=== PATIENT | male | born 1955 | race American Indian/Alaskan Native ===

== ENCOUNTER 2017-05-18 15:38 | Emergency (ER) | payer SELFPAY ==
[2017-05-18] MEDS ORDERED: NORVASC PO ONE (16:24)
[2017-05-18] MEDS ORDERED: CATAPRES PO ONE (16:24)
[2017-05-18 16:47] LABS: Eosinophils % (Auto) 1.7 % (0.0-4.3); Hematocrit 50.5 % (35.5-45.6); Hemoglobin 16.4 gm/dl (11.8-15.2); Mean Corpuscular HGB Conc 33 % (32-34); Mean Corpuscular Hemoglobin 30 pg (28-32); Mean Corpuscular Volume 92 fl (84-94); Platelet Count 235 K/mm3 (140-440); Red Blood Count 5.49 M/mm3 (3.65-5.03); Red Cell Distribution Width 13.5 % (13.2-15.2); White Blood Count 8.3 K/mm3 (4.5-11.0)
[2017-05-18 17:01] LABS: Bilirubin,Urine NEG (Negative); Blood,Urine SM (Negative); Ketones,Urine NEG (Negative); Leukocyte Esterase,Urine NEG (Negative); Mucus,Urine 2+ /HPF; Nitrite,Urine NEG (Negative); Urobilinogen,Urine < 2.0 mg/dL (<2.0)
[2017-05-18 17:09] LABS: Alanine Aminotransferase 33 units/L (7-56); Alkaline Phosphatase 66 units/L (35-129); Anion Gap 18 mmol/L; BUN/Creatinine Ratio 11.81; Blood Urea Nitrogen 13 mg/dL (9-20); Calcium 8.9 mg/dL (8.4-10.2); Carbon Dioxide 26 mmol/L (22-30); Chloride 99.9 mmol/L (98-107); Glucose 134 mg/dL (75-100); Potassium 3.2 mmol/L (3.6-5.0); Sodium 141 mmol/L (137-145); Total Protein 8.2 g/dL (6.3-8.2)
--- NOTE | 2017-05-18 17:35 | Cat Scan Report ---
FINAL REPORT EXAM: CT HEAD/BRAIN WO CON HISTORY: ear ache TECHNIQUE: Noncontrast serial axial images from skullbase to vertex PRIORS: None. FINDINGS: There is no mass effect or midline shift. Lateral ventricles are normal in size and configuration. Basilar cisterns are patent. There is not evidence of acute intracranial hemorrhage. Areas of malacia are seen in the right parietal lobe and posterior right temporal lobe consistent with prior infarcts. Areas of relative hypodensity are in the white matter of the cerebral hemispheres. Punctate calcifications are noted in the cortex of the left frontal lobe and in the right basal ganglia. Paranasal sinuses and mastoid air cells are well aerated. There is soft tissue density noted in the right external auditory canal. The middle ear is well aerated, however. IMPRESSION: 1. 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 2. Areas of relative hypodensity are seen in the white matter of the cerebral hemispheres. This is a nonspecific finding. It may be related to chronic ischemic change from small vessel disease. 3. Asymmetric soft tissue density is seen in the right external auditory canal. This is a nonspecific finding. It could be related to otitis externa given the history provided. Other neoplastic process is not excluded. Correlation with otoscopic exam is necessary.
[2017-05-18] MEDS ORDERED: ZOFRAN IV ONE (18:10)
[2017-05-18] MEDS ORDERED: MORPHINE IV ONE (18:10)
--- NOTE | 2017-05-18 18:31 | Emergency Department Report ---
ED ENT HPI - General Chief complaint: Earache Stated complaint: RT EAR INFECTION Time Seen by Provider: 05/18/17 16:24 Source: patient Mode of arrival: Ambulatory Limitations: No Limitations - History of Present Illness Initial comments: 62-year-old male with past medical history of hypertension is presenting to the ED complaining of right ear pain. Patient states pain started approximately 3 weeks prior. No inciting factor such as trauma. Patient states initially pain was a dull intermittent ache,that would resolve on its own. Patient states over the last several days, pain has become more constant. Worse when he opens his mouth and chews food, improves when he rests. Patient denies: fevers/chills, headache, neck pain, neck stiffness, chest pain, nausea/vomiting/diarrhea, neuro deficits. MD complaint: ear pain -: Gradual, week(s) (3) Location: R ear Severity: moderate Severity scale (0 -10): 3 Quality: stabbing Consistency: constant Improves with: none Worsens with: swallowing Associated Symptoms: denies: cough, gum swelling, toothache, pain with swallowing, sore throat, tinnitus, hearing loss, discharge from ear, rhinorrhea - Related Data Previous Rx's Medication Instructions Recorded Last Taken Type Cipro/Dexameth 0.3/0.1% [Ciprodex 4 drops OT BID #1 bottle 05/18/17 Unknown Rx OTIC] HYDROcodone/APAP 5-325 [[place] 1 each PO Q4HR PRN #20 tablet 05/18/17 Unknown Rx 5/325] amLODIPine [Norvasc] 10 mg PO DAILY #30 tab 05/18/17 Unknown Rx Allergies Allergy/AdvReac Type Severity Reaction Status Date / Time No Known Allergies Allergy Unverified 05/18/17 16:11 ED Dental HPI - General Chief complaint: Earache Stated complaint: RT EAR INFECTION Time Seen by Provider: 05/18/17 16:24 Source: patient Mode of arrival: Ambulatory Limitations: No Limitations - Related Data Previous Rx's Medication Instructions Recorded Last Taken Type Cipro/Dexameth 0.3/0.1% [Ciprodex 4 drops OT BID #1 bottle 05/18/17 Unknown Rx OTIC] HYDROcodone/APAP 5-325 [[place] 1 each PO Q4HR PRN #20 tablet 05/18/17 Unknown Rx 5/325] amLODIPine [Norvasc] 10 mg PO DAILY #30 tab 05/18/17 Unknown Rx Allergies Allergy/AdvReac Type Severity Reaction Status Date / Time No Known Allergies Allergy Unverified 05/18/17 16:11 ED Review of Systems ROS: Stated complaint: RT EAR INFECTION Other details as noted in HPI Constitutional: denies: chills, fever Eyes: denies: eye pain, eye discharge, vision change ENT: ear pain. denies: throat pain, dental pain, hearing loss, epistaxis, congestion Respiratory: denies: cough, shortness of breath, wheezing Cardiovascular: denies: chest pain, palpitations Endocrine: no symptoms reported Gastrointestinal: denies: abdominal pain, nausea, diarrhea Genitourinary: denies: urgency, dysuria Musculoskeletal: denies: back pain, joint swelling, arthralgia Skin: denies: rash, lesions Neurological: denies: headache, weakness, paresthesias Psychiatric: denies: anxiety, depression Hematological/Lymphatic: denies: easy bleeding, easy bruising ED Past Medical Hx - Past Medical History Hx Hypertension: Yes - Surgical History Past Surgical History?: No - Social History Smoking Status: Never Smoker Substance Use Type: None - Medications Home Medications: Home Medications Medication Instructions Recorded Confirmed Last Taken Type Cipro/Dexameth 0.3/0.1% [Ciprodex 4 drops OT BID #1 bottle 05/18/17 Unknown Rx OTIC] HYDROcodone/APAP 5-325 [[place] 1 each PO Q4HR PRN #20 tablet 05/18/17 Unknown Rx 5/325] amLODIPine [Norvasc] 10 mg PO DAILY #30 tab 05/18/17 Unknown Rx ED Physical Exam - General Limitations: No Limitations General appearance: alert, in no apparent distress - Head Head exam: Present: atraumatic, normocephalic - Eye Eye exam: Present: normal appearance - ENT ENT exam: Present: normal orophraynx, mucous membranes dry, mucous membranes moist, other (right ear has exuadative fluid behind TM, TM has erythema, there is no drainage. left ear: TM CLEAR). Absent: TM's normal bilaterally - Neck Neck exam: Present: normal inspection - Respiratory Respiratory exam: Present: normal lung sounds bilaterally. Absent: respiratory distress - Cardiovascular Cardiovascular Exam: Present: regular rate, normal rhythm. Absent: systolic murmur, diastolic murmur, rubs, gallop - GI/Abdominal GI/Abdominal exam: Present: soft, normal bowel sounds - Rectal Rectal exam: Present: deferred - Extremities Exam Extremities exam: Present: normal inspection - Back Exam Back exam: Present: normal inspection - Neurological Exam Neurological exam: Present: alert, oriented X3 - Psychiatric Psychiatric exam: Present: normal affect, normal mood - Skin Skin exam: Present: warm, dry, intact, normal color. Absent: rash ED Course Vital Signs 05/18/17 05/18/17 05/18/17 16:11 16:15 16:41 Temperature 98.8 F Pulse Rate 81 81 Respiratory Rate Blood Pressure 230/128 230/120 Blood Pressure 220/130 [Left] O2 Sat by Pulse 95 Oximetry 05/18/17 05/18/17 05/18/17 17:28 19:30 20:00 Temperature Pulse Rate 68 64 67 Respiratory 18 18 Rate Blood Pressure Blood Pressure 230/140 178/89 157/83 [Left] O2 Sat by Pulse 96 96 Oximetry - Reevaluation(s) Reevaluation #1: 05/18/17 18:47 The patient was given by mouth meds for blood pressure, however his blood pressure has not decreased. Patient will be started on nicardipine drip and admitted to ICU for blood pressure control. He admits to noncompliant with his lisinopril secondary to the medication making him cough. 05/20/17 03:28 Reevaluation #2: 05/18/17 19:54 Agents blood pressure has decreased without IV intervention. I will start patient on amlodipine and have him follow with PCP and ENT. Patient agrees to plan. 05/20/17 03:28 ED Medical Decision Making - Lab Data Result diagrams: 05/18/17 16:34 05/18/17 16:34 - EKG Data -: EKG Interpreted by Me EKG shows normal: sinus rhythm, axis (negative), intervals (IN normal, QRS 438) - Radiology Data Radiology results: report reviewed, image reviewed No acute endings. - Medical Decision Making 62-year-old male presenting to the emergency department complaining of right ear pain. Pain is secondary to right otitis media. At this time patient has no complaints and agrees he is stable discharge home. During the ED workup, the patient was found to be hypertensive. His blood pressure has responded to by mouth medications and I will start him on amlodipine and have him follow up with PCP and ENT. Patient has no questions and a greasy stable discharge home. Critical Care Time: Yes (35) Critical care attestation.: If time is entered above; I have spent that time in minutes in the direct care of this critically ill patient, excluding procedure time. Critical Care Time: 35 ED Disposition Clinical Impression: Right otitis media, Hypertensive urgency Disposition: - TO HOME OR SELFCARE Is pt being admited?: No Does the pt Need Aspirin: No Condition: Stable Instructions: Otitis Media (ED), Chronic Hypertension (ED), Hypertension (ED) Prescriptions: amLODIPine [Norvasc] 10 mg PO DAILY #30 tab Cipro/Dexameth 0.3/0.1% [Ciprodex OTIC] 4 drops OT BID #1 bottle HYDROcodone/APAP 5-325 [Sp[place]er 5/325] 1 each PO Q4HR PRN #20 tablet PRN Reason: Pain Referrals: PRIMARY CARE, [Primary Care Provider] - 3-5 Days Forms: Work/School Release Form(ED)
[2017-05-18] MEDS ORDERED: CARDENE 50 MG in NACL 0.9% 250ML 230 ML IV SCH (19:00)
[2017-05-18 20:45] VITALS: BP 157/83
[2017-05-18] MEDS ORDERED: CIPRODEX AD SCH (22:00)
== END 2017-05-18 20:20 | disposition home or self-care (01) ==
LOC: ED 15:38
DX: H66.91 Otitis media, unspecified, right ear (principal); I10 Essential (primary) hypertension
CPT/HCPCS: 36415; 70450; 80053; 81001; 84484; 85025; 93005; 93010; 96374; 96375; 99284; J2270; J2405; J7050

== ENCOUNTER 2017-06-04 20:45 | Emergency (ER) | payer SELFPAY ==
[2017-06-04 22:01] VITALS: BP 166/114
[2017-06-04] MEDS ORDERED: CATAPRES PO ONE (22:02)
[2017-06-04 22:34] LABS: Basophils % (Auto) 1.1 % (0.0-1.8); Eosinophils % (Auto) 4.6 % (0.0-4.3); Hematocrit 46.6 % (35.5-45.6); Hemoglobin 15.4 gm/dl (11.8-15.2); Mean Corpuscular HGB Conc 33 % (32-34); Mean Corpuscular Hemoglobin 31 pg (28-32); Mean Corpuscular Volume 93 fl (84-94); Platelet Count 226 K/mm3 (140-440); Red Blood Count 5.01 M/mm3 (3.65-5.03); Red Cell Distribution Width 13.3 % (13.2-15.2); White Blood Count 6.8 K/mm3 (4.5-11.0)
[2017-06-04 22:47] LABS: Anion Gap 17 mmol/L; Blood Urea Nitrogen 18 mg/dL (9-20); Calcium 9.3 mg/dL (8.4-10.2); Carbon Dioxide 26 mmol/L (22-30); Glucose 93 mg/dL (75-100); Potassium 4.1 mmol/L (3.6-5.0); Sodium 138 mmol/L (137-145)
--- NOTE | 2017-06-05 10:30 | ED Elopement Review ---
ED Pt Elopement review - Results review Lab results: Laboratory Tests 06/04/17 06/04/17 22:09 22:09 WBC 6.8 RBC 5.01 Hgb 15.4 H Hct 46.6 H MCV 93 MCH 31 MCHC 33 RDW 13.3 Plt Count 226 Lymph % (Auto) 46.2 H [place] % (Auto) 6.3 Eos % (Auto) 4.6 H Baso % (Auto) 1.1 Lymph # 3.2 [place] # 0.4 Eos # 0.3 Baso # 0.1 Seg Neutrophils % 41.8 Seg Neutrophils # 2.9 Sodium 138 Potassium 4.1 Chloride 99.0 Carbon Dioxide 26 Anion Gap 17 BUN 18 Creatinine 1.2 Estimated GFR > 60 BUN/Creatinine Ratio 15.00 Glucose 93 Calcium 9.3 - Call Back decision Pt Call Back Decision: No action required
== END 2017-06-05 05:46 | disposition left against medical advice (07) ==
LOC: ED 20:45
DX: Z53.21 Procedure and treatment not carried out due to patient leaving prior to being seen by health care provider (principal)
CPT/HCPCS: 36415; 80048; 85025

== ENCOUNTER 2020-04-16 20:34 | Observation (INO) | payer BC ==
[2020-04-16] MEDS ORDERED: ONDANSETRON 4 MG/2 ML INJ IV ONE ×2 (20:49→22:11)
--- NOTE | 2020-04-16 21:13 | Emergency Department Report ---
ED General Adult HPI - General Chief complaint: High BP Stated complaint: HYPERTENSION Time Seen by Provider: 04/16/20 20:44 Source: patient, EMS Mode of arrival: Stretcher Limitations: No Limitations - History of Present Illness Initial comments: Patient is 65 years old with history of hypertension noncompliant with his medication. Patient previous is taking amlodipine. Patient presented to the ER complaining of headache, nausea and vomiting for the last 3 days. Patient denied any focal weakness, numbness or tingling sensation. Patient also denied any chest pain or shortness of breath. No abdominal pain or diarrhea. Patient also denied any fever, neck pain, bowel or bladder incontinence. Patient found to have a blood pressure of 237/132. Patient immediately received labetalol 20 mg IV. - Related Data Previous Rx's Medication Instructions Recorded Last Taken Type amLODIPine 10 mg PO DAILY #30 tab 05/18/17 Unknown Rx Allergies Allergy/AdvReac Type Severity Reaction Status Date / Time No Known Allergies Allergy Unverified 05/18/17 16:11 ED Review of Systems ROS: Stated complaint: HYPERTENSION Other details as noted in HPI Comment: All other systems reviewed and negative Constitutional: denies: chills, fever Respiratory: denies: cough, shortness of breath Cardiovascular: denies: chest pain, palpitations, dyspnea on exertion Gastrointestinal: nausea, vomiting. denies: abdominal pain, diarrhea, constipation, hematemesis, melena, hematochezia Musculoskeletal: denies: back pain Neurological: headache. denies: weakness, numbness, paresthesias, confusion, abnormal gait, vertigo ED Past Medical Hx - Past Medical History Hx Hypertension: Yes - Social History Smoking Status: Never Smoker Substance Use Type: None - Medications Home Medications: Home Medications Medication Instructions Recorded Confirmed Last Taken Type amLODIPine 10 mg PO DAILY #30 tab 05/18/17 04/17/20 Unknown Rx ED Physical Exam - General Limitations: No Limitations General appearance: alert, in no apparent distress - Head Head exam: Present: atraumatic, normocephalic, normal inspection - Eye Eye exam: Present: normal appearance - ENT ENT exam: Present: normal exam, normal orophraynx, mucous membranes moist - Neck Neck exam: Present: normal inspection, full ROM. Absent: tenderness, meningismus - Respiratory Respiratory exam: Present: normal lung sounds bilaterally - Cardiovascular Cardiovascular Exam: Present: regular rate, normal rhythm, normal heart sounds - GI/Abdominal GI/Abdominal exam: Present: soft, normal bowel sounds. Absent: distended, tenderness, guarding, rebound, rigid, organomegaly, mass, bruit, pulsatile mass, hernia - Extremities Exam Extremities exam: Present: normal inspection, full ROM, normal capillary refill. Absent: tenderness, pedal edema, calf tenderness - Back Exam Back exam: Present: normal inspection, full ROM. Absent: CVA tenderness (R), CVA tenderness (L) - Neurological Exam Neurological exam: Present: alert, oriented X3, CN II-XII intact, normal gait, reflexes normal. Absent: abnormal gait, motor sensory deficit - Psychiatric Psychiatric exam: Present: normal mood - Skin Skin exam: Present: warm, intact, normal color ED Course Vital Signs 04/16/20 04/16/20 04/16/20 20:45 20:55 21:08 Temperature 98 F Pulse Rate 94 H 104 H 74 Respiratory 18 Rate Blood Pressure 237/132 Blood Pressure 237/132 183/104 [Left] O2 Sat by Pulse 100 Oximetry 04/16/20 04/16/20 04/16/20 21:32 21:37 21:58 Temperature Pulse Rate 81 78 Respiratory 17 18 Rate Blood Pressure Blood Pressure 214/124 180/94 [Left] O2 Sat by Pulse 97 100 Oximetry 04/16/20 04/16/20 04/16/20 22:12 22:13 23:04 Temperature Pulse Rate 94 H 78 86 Respiratory 19 Rate Blood Pressure 224/114 Blood Pressure 161/98 [Left] O2 Sat by Pulse 98 Oximetry 04/16/20 04/16/20 04/16/20 23:29 23:30 23:44 Temperature Pulse Rate 89 86 89 Respiratory 17 22 19 Rate Blood Pressure 192/85 192/85 Blood Pressure 151/72 [Left] O2 Sat by Pulse 98 99 95 Oximetry 04/16/20 04/17/20 04/17/20 23:46 00:00 00:16 Temperature Pulse Rate 85 87 80 Respiratory 16 26 H 20 Rate Blood Pressure 151/72 151/72 168/105 Blood Pressure [Left] O2 Sat by Pulse 94 98 95 Oximetry 04/17/20 04/17/20 04/17/20 00:25 00:30 00:46 Temperature Pulse Rate 80 92 H 92 H Respiratory 14 13 28 H Rate Blood Pressure 171/111 171/111 Blood Pressure 171/111 [Left] O2 Sat by Pulse 99 98 98 Oximetry 04/17/20 04/17/20 04/17/20 00:55 01:00 01:28 Temperature Pulse Rate 85 87 100 H Respiratory 19 18 Rate Blood Pressure 175/103 180/94 Blood Pressure 175/103 [Left] O2 Sat by Pulse 97 99 Oximetry 04/17/20 04/17/20 04/17/20 01:30 01:41 01:46 Temperature Pulse Rate 107 H 87 89 Respiratory 27 H 18 22 Rate Blood Pressure 180/94 173/89 Blood Pressure 173/89 [Left] O2 Sat by Pulse 98 98 97 Oximetry 04/17/20 04/17/20 04/17/20 02:00 02:02 02:16 Temperature Pulse Rate 92 H 90 87 Respiratory 22 20 20 Rate Blood Pressure 173/89 173/87 Blood Pressure 173/87 [Left] O2 Sat by Pulse 97 97 96 Oximetry 04/17/20 04/17/20 04/17/20 02:23 02:30 02:45 Temperature Pulse Rate 92 H 92 H 90 Respiratory 17 24 22 Rate Blood Pressure 175/100 157/89 Blood Pressure 175/100 [Left] O2 Sat by Pulse 97 97 97 Oximetry 04/17/20 04/17/20 04/17/20 02:48 03:00 03:08 Temperature Pulse Rate 97 H 99 H Respiratory 20 22 16 Rate Blood Pressure 157/89 Blood Pressure 157/89 136/89 [Left] O2 Sat by Pulse 97 98 98 Oximetry 04/17/20 04/17/20 04/17/20 03:29 03:30 03:45 Temperature Pulse Rate 95 H 90 90 Respiratory 17 19 14 Rate Blood Pressure 175/100 132/65 140/72 Blood Pressure [Left] O2 Sat by Pulse 98 99 96 Oximetry 04/17/20 04/17/20 04/17/20 04:00 04:15 04:31 Temperature Pulse Rate 92 H 92 H 89 Respiratory 15 15 16 Rate Blood Pressure 149/78 152/73 145/78 Blood Pressure [Left] O2 Sat by Pulse 95 96 97 Oximetry 04/17/20 04/17/20 04/17/20 04:45 05:00 05:15 Temperature Pulse Rate 92 H 96 H 86 Respiratory 15 20 17 Rate Blood Pressure 161/86 159/82 162/87 Blood Pressure [Left] O2 Sat by Pulse 96 97 97 Oximetry 04/17/20 04/17/20 04/17/20 05:17 05:30 05:45 Temperature Pulse Rate 87 89 88 Respiratory 16 16 21 Rate Blood Pressure 151/85 157/85 Blood Pressure 162/87 [Left] O2 Sat by Pulse 98 99 97 Oximetry 04/17/20 04/17/20 04/17/20 06:01 06:30 06:45 Temperature Pulse Rate 110 H 90 85 Respiratory 22 14 17 Rate Blood Pressure 153/111 152/76 119/63 Blood Pressure [Left] O2 Sat by Pulse 98 93 95 Oximetry 04/17/20 04/17/20 04/17/20 07:00 07:10 07:15 Temperature Pulse Rate 82 88 91 H Respiratory 15 18 22 Rate Blood Pressure 132/69 146/75 Blood Pressure 136/72 [Left] O2 Sat by Pulse 94 97 94 Oximetry 04/17/20 04/17/20 04/17/20 07:30 07:45 08:00 Temperature Pulse Rate 84 81 77 Respiratory 15 16 13 Rate Blood Pressure 137/71 136/69 137/66 Blood Pressure [Left] O2 Sat by Pulse 98 95 95 Oximetry 04/17/20 04/17/20 04/17/20 08:25 08:30 08:45 Temperature Pulse Rate 77 77 76 Respiratory 15 14 12 Rate Blood Pressure 137/66 136/63 143/65 Blood Pressure [Left] O2 Sat by Pulse 95 95 92 Oximetry 04/17/20 04/17/20 04/17/20 09:00 09:15 09:31 Temperature Pulse Rate 76 83 101 H Respiratory 13 13 24 Rate Blood Pressure 132/68 150/78 144/87 Blood Pressure [Left] O2 Sat by Pulse 94 93 94 Oximetry 04/17/20 04/17/20 04/17/20 09:45 10:00 10:15 Temperature Pulse Rate 75 Respiratory 17 22 17 Rate Blood Pressure 156/79 157/83 145/77 Blood Pressure [Left] O2 Sat by Pulse 96 96 98 Oximetry ED Medical Decision Making - Lab Data Result diagrams: 04/17/20 04:46 04/17/20 04:46 - EKG Data -: EKG Interpreted by Wy EKG shows normal: sinus rhythm Rate: normal - EKG Data Interpretation: no acute changes - Radiology Data Radiology results: report reviewed - Medical Decision Making Patient is 65 years old with history of hypertension noncompliant with his medication. Patient previous is taking amlodipine. Patient presented to the ER complaining of headache, nausea and vomiting for the last 3 days. Patient denied any focal weakness, numbness or tingling sensation. Patient also denied any chest pain or shortness of breath. No abdominal pain or diarrhea. Patient also denied any fever, neck pain, bowel or bladder incontinence. Patient found to have a blood pressure of 237/132. Patient immediately received labetalol 20 mg IV. EKG shows sinus rhythm with no ST elevation but there is significant ST depression in multiple leads. Labs reviewed and is unremarkable. Patient received hydralazine 20 mg IV with some improvement in the blood pressure but his blood pressure went up again to 230/120. Patient started on Cardene drip. Patient continued to have nausea and vomiting. Patient received Zofran x2, Reglan and Benadryl. I discussed the patient with Dr. Chau, he agreed to admit the patient to medical service for further management. Critical Care Time: Yes Critical care time in (mins) excluding proc time.: 30 Critical care attestation.: If time is entered above; I have spent that time in minutes in the direct care of this critically ill patient, excluding procedure time. ED Disposition Clinical Impression: Hypertensive emergency, Headache, Nausea and vomiting Disposition: -09 OP ADMIT IP TO THIS HOSP Is pt being admited?: Yes Condition: Stable
[2020-04-16 21:19] LABS: Basophils # (Auto) 0.1 K/mm3 (0.0-0.1); Basophils % (Auto) 0.9 % (0.0-1.8); Eosinophils % (Auto) 0.1 % (0.0-4.3); Hematocrit 51.9 % (35.5-45.6); Hemoglobin 17.1 gm/dl (11.8-15.2); Lymphocytes # (Auto) 1.3 K/mm3 (1.2-5.4); Lymphocytes % (Auto) 14.3 % (13.4-35.0); Mean Corpuscular HGB Conc 33 % (32-34); Mean Corpuscular Volume 94 fl (84-94); Monocytes # (Auto) 0.4 K/mm3 (0.0-0.8); Monocytes % (Auto) 4.8 % (0.0-7.3); Platelet Count 236 K/mm3 (140-440); Red Cell Distribution Width 13.8 % (13.2-15.2)
[2020-04-16] MEDS ORDERED: hydrALAZINE 20 MG/1 ML INJ ONE (21:36)
[2020-04-16 21:42] LABS: Alanine Aminotransferase 41 units/L (7-56); Albumin 4.5 g/dL (3.9-5); BUN/Creatinine Ratio 12; Blood Urea Nitrogen 11 mg/dL (9-20); Calcium 9.3 mg/dL (8.4-10.2); Hemolysis Index 7
[2020-04-16 21:43] LABS: Bilirubin,Direct < 0.2 mg/dL (0-0.2)
--- NOTE | 2020-04-16 21:57 | Cat Scan Report ---
NONENHANCED CT SCAN OF THE HEAD: INDICATION / CLINICAL INFORMATION: 65 years Male; Syncopal Episode today. Elevated blood pressure. Hx of previous stroke x 3 years ago. . TECHNIQUE: Routine CT head without contrast. All CT scans at this location are performed using CT dos e reduction for ALARA by means of automated exposure control. COMPARISON: None. FINDINGS: BRAIN / INTRACRANIAL CONTENTS: No acute hemorrhage, mass effect, midline shift, hydrocephalus, As seen in the last CT scan, encephalomalacia is seen in the right posterior temporal lobe and right lateral inferior parietal lobe with compensatory enlargement of right lateral ventricle. Since then, encephalomalacia has also never left in the right frontal lobe. Tiny chronic lacune is seen in the ri ght caudate. As seen in the previous scan, dystrophic calcification is seen in the right corpus strat um. In addition, calcified embolus is seen in one of the medial left frontal sulcus. Chronic ischemic changes are seen in the left frontal lobe white matter. In addition, right posterior parietal border zone ischemia is seen. This appears to be more recent. CRANIOCERVICAL JUNCTION: No significant abnormality. ORBITS: No significant abnormality of visualized orbits. SINUSES / MASTOIDS: No significant abnormality of the visualized paranasal sinuses or mastoid air alex ls. ADDITIONAL FINDINGS: None. IMPRESSION: No hemorrhage Encephalomalacia in the right cerebral hemisphere Right posterior parietal border zone ischemia; this appears to be more recent Signer Name: Marbella Cortes MD Signed: 04/16/2020 9:52 PM Workstation Name: [id number]
[2020-04-16] MEDS ORDERED: METOCLOPRAMIDE 10 MG/2 ML INJ ONE (22:09)
[2020-04-16] MEDS ORDERED: hydrALAZINE 20 MG/1 ML INJ IV ONE (22:11)
[2020-04-16] MEDS ORDERED: METOCLOPRAMIDE 10 MG/2 ML INJ IV ONE (22:12)
[2020-04-16] MEDS ORDERED: diphenhydrAMINE 50 MG/ML VIAL ONE (22:36)
[2020-04-16] MEDS ORDERED: diphenhydrAMINE 50 MG/ML VIAL IV ONE (22:39)
[2020-04-16] MEDS ORDERED: niCARdipine 50 MG in SODIUM CHLORIDE 0.9% 250ML 230 ML IV SCH (23:00)
[2020-04-16] MEDS ORDERED: MAGNESIUM HYDROXIDE (MOM) ORAL LIQD UDC PO PRN (23:03)
[2020-04-16] MEDS ORDERED: ONDANSETRON 4 MG/2 ML INJ IV PRN (23:03)
[2020-04-17] MEDS ORDERED: diphenhydrAMINE 50 MG/ML VIAL IV ONE (00:31)
[2020-04-17] MEDS ORDERED: diphenhydrAMINE 50 MG/ML VIAL ONE (00:32)
[2020-04-17] MEDS ORDERED: PANTOPRAZOLE 40 MG INJ IV ONE ×2 (00:33→00:53)
--- NOTE | 2020-04-17 01:43 | Cat Scan Report ---
CT ABDOMEN AND PELVIS WITH IV CONTRAST INDICATION: Generalized abdominal pain and vomiting for 2 days TECHNIQUE: Following the administration of intravenous contrast, multiple axial CT images of the abdo men and pelvis were acquired. Sagittal and coronal reformats were obtained. All CT performed at this facility utilize dose reduction techniques including automated exposure control, iterative reconstru ction and weight based dosing when appropriate to reduce patient radiation dose to as low as reasonab ly achievable. COMPARISON: No prior studies are available for comparison. FINDINGS: Limited imaging of the bilateral lung bases demonstrates no evidence of acute abnormality. Abdomen: The liver, gallbladder, spleen, pancreas, bilateral adrenal glands and bilateral kidneys eric w no evidence of acute abnormality. There is a small hiatal hernia. The abdominal aorta is normal in caliber. There is no evidence of bowel obstruction. The appendix is visualized and appears normal. Pelvis: No free fluid is seen within the pelvis. The urinary bladder is decompressed. The prostate gl and is mildly enlarged. Bones and Soft Tissues: Evaluation of bony structures demonstrates no evidence of acute bony abnormal ity. Evaluation of soft tissue structures demonstrates no evidence of acute soft tissue abnormality. IMPRESSION: 1. No CT evidence of acute inflammatory or obstructive process within the abdomen or pelvis. 2. Additional findings as described above. Signer Name: Helene Titus MD Signed: 04/17/2020 1:39 AM Workstation Name: [id number]
--- NOTE | 2020-04-17 03:00 | History and Physical Report ---
History of Present Illness Date of examination: 04/16/20 Date of admission: 04/16/20 22:49 Chief complaint: Elevated blood pressure Headache History of present illness: 65-year-old male with known history of hypertension who is noncompliant with his medications presenting to the emergency room today complaining of headache, nausea and vomiting for 3 days. Patient has been on amlodipine in the past for his blood pressure. He denies any chest pain or shortness of breath, no abdominal pain or diarrhea, no fever or chills, Upon arrival in the emergency room patient was found to be quite hypertensive with blood pressure 237/132. He was given some IV labetalol and IV hydralazine without any significant improvement. Was subsequently started on nicardipine dr maradiaga. Work-up so far in the emergency room including CT scan of the head has been unremarkable. Past History Past Medical History: hypertension Past Surgical History: No surgical history Social history: no significant social history Family history: no significant family history Medications and Allergies Allergies Allergy/AdvReac Type Severity Reaction Status Date / Time No Known Allergies Allergy Unverified 05/18/17 16:11 Home Medications Medication Instructions Recorded Confirmed Last Taken Type Cipro/Dexameth 0.3/0.1% [Ciprodex 4 drops OT BID #1 bottle 05/18/17 Unknown Rx OTIC] HYDROcodone/APAP 5-325 [[place] 1 each PO Q4HR PRN #20 tablet 05/18/17 Unknown Rx 5/325] amLODIPine 10 mg PO DAILY #30 tab 05/18/17 Unknown Rx Active Meds: Active Medications Nicardipine HCl 50 mg/ Sodium (Chloride) 250 mls @ 25 mls/hr IV TITR CAMELIA; Protocol Last Titration: 04/17/20 02:23 Dose: 5 mg/hr, 25 mls/hr Documented by: Magnesium Hydroxide (Milk Of Magnesia) 30 ml PO Q4H PRN PRN Reason: Constipation Ondansetron HCl (Zofran) 4 mg IV Q8H PRN PRN Reason: Nausea And Vomiting Sodium Chloride (Sodium Chloride Flush Syringe 10 Ml) 10 ml IV BID CAMELIA Sodium Chloride (Sodium Chloride Flush Syringe 10 Ml) 10 ml IV PRN PRN PRN Reason: LINE FLUSH Review of Systems Constitutional: no fever, no chills, no malaise Ears, nose, mouth and throat: no sore throat, no vertigo Cardiovascular: no chest pain, no palpitations, no syncope Respiratory: no cough, no shortness of breath, no congestion Gastrointestinal: nausea, vomiting, no abdominal pain, no diarrhea Genitourinary Male: no dysuria, no hematuria, no urinary frequency, no urinary hesitancy Musculoskeletal: no neck pain, no low back pain Integumentary: no rash, no pruritis Neurological: headaches, no confusion Psychiatric: no anxiety, no depression Exam - Constitutional Vitals: Temp Pulse Resp BP Pulse Ox 98 F 97 H 20 157/89 97 04/16/20 20:45 04/17/20 02:48 04/17/20 02:48 04/17/20 02:48 04/17/20 02:48 General appearance: Present: no acute distress, well-nourished - EENT Eyes: Present: PERRL, EOM intact ENT: hearing intact, clear oral mucosa, dentition normal - Neck Neck: Present: supple, normal ROM - Respiratory Respiratory effort: normal Respiratory: bilateral: CTA - Cardiovascular Rhythm: regular Heart Sounds: Present: S1 & S2 - Extremities Extremities: no ischemia, pulses intact, pulses symmetrical, No edema, Full ROM Peripheral Pulses: within normal limits - Abdominal General gastrointestinal: Present: soft, non-tender, non-distended - Integumentary Integumentary: Present: clear, warm, dry - Musculoskeletal Musculoskeletal: strength equal bilaterally - Psychiatric Psychiatric: appropriate mood/affect, intact judgment & insight, cooperative - Neurologic Neurologic: CNII-XII intact, moves all extremities HEART Score - HEART Score Troponin: Troponin T < 0.010 ng/mL (0.00-0.029) 04/16/20 21:01 Results - Labs CBC & Chem 7: 04/17/20 04:46 04/17/20 04:46 Labs: Abnormal lab results 04/16/20 04/16/20 Range/Units 21:01 21:01 RBC 5.50 H (3.65-5.03) M/mm3 Hgb 17.1 H (11.8-15.2) gm/dl Hct 51.9 H (35.5-45.6) % Seg Neutrophils % 79.9 H (40.0-70.0) % Potassium 3.5 L (3.6-5.0) mmol/L Glucose 143 H (75-100) mg/dL Total Protein 8.9 H (6.3-8.2) g/dL Assessment and Plan - Patient Problems (1) Hypertensive emergency Current Visit: Yes Status: Acute Plan to address problem: Probably secondary to noncompliance with medication. Patient placed on nicardipine drip. Will monitor blood pressure closely. (2) Headache Current Visit: Yes Status: Acute Plan to address problem: Possibly secondary to the elevated blood pressure. Patient be given analgesic medication as needed for headache. (3) Nausea and vomiting Current Visit: Yes Status: Acute Plan to address problem: Patient placed on IV Zofran as needed. (4) DVT prophylaxis Current Visit: Yes Status: Acute Plan to address problem: Patient placed on subcutaneous heparin. (5) Full code status Current Visit: Yes Status: Acute
[2020-04-17 05:12] LABS: Basophils % (Auto) 0.3 % (0.0-1.8); Hematocrit 51.4 % (35.5-45.6); Hemoglobin 17.2 gm/dl (11.8-15.2); Lymphocytes # (Auto) 1.4 K/mm3 (1.2-5.4); Lymphocytes % (Auto) 12.4 % (13.4-35.0); Mean Corpuscular HGB Conc 33 % (32-34); Mean Corpuscular Volume 94 fl (84-94); Monocytes # (Auto) 0.5 K/mm3 (0.0-0.8); Monocytes % (Auto) 4.3 % (0.0-7.3); Platelet Count 257 K/mm3 (140-440); Red Blood Count 5.49 M/mm3 (3.65-5.03); Red Cell Distribution Width 14.1 % (13.2-15.2)
[2020-04-17 05:23] LABS: INR 1.06 (0.87-1.13)
[2020-04-17 05:28] LABS: BUN/Creatinine Ratio 12; Blood Urea Nitrogen 14 mg/dL (9-20); Calcium 9.8 mg/dL (8.4-10.2); Hemolysis Index 5
--- NOTE | 2020-04-17 07:23 | Consultation ---
History of Present Illness Consult date: 04/17/20 Requesting physician: MARGARET KEY Reason for consult: other (Hypertensive emrgency requiring IV infusion) History of present illness: 65-year-old male with known history of hypertension who is noncompliant with his medications presenting to the emergency room today complaining of headache, nausea and vomiting for 3 days. Patient has been on amlodipine in the past for his blood pressure. He denies any chest pain or shortness of breath, no abdominal pain or diarrhea, no fever or chills, Upon arrival in the emergency room patient was found to be quite hypertensive with blood pressure 237/132. He was given some IV labetalol and IV hydralazine without any significant improvement. Was subsequently started on nicardipine drip. Work-up so far in the emergency room including CT scan of the head has been unremarkable. I have been consulted for critical care management and to facilitate admission to the ICU for titration of Nicardipine infusion. Patient was seen and examined. Vitals, labs, medications, chart and imaging reviewed. At the time of my evaluation, the patient was off nicardipine infusion. ROS: Constitutional: no fever, no chills, no malaise Ears, nose, mouth and throat: no sore throat, no vertigo Cardiovascular: no chest pain, no palpitations, no syncope Respiratory: no cough, no shortness of breath, no congestion Gastrointestinal: nausea, vomiting, no abdominal pain, no diarrhea Genitourinary Male: no dysuria, no hematuria, no urinary frequency, no urinary hesitancy Musculoskeletal: no neck pain, no low back pain Integumentary: no rash, no pruritis Neurological: headaches, no confusion Psychiatric: no anxiety, no depression Past History Past Medical History: hypertension Past Surgical History: No surgical history Social history: no significant social history Family history: no significant family history Medications and Allergies Allergies Allergy/AdvReac Type Severity Reaction Status Date / Time No Known Allergies Allergy Unverified 05/18/17 16:11 Home Medications Medication Instructions Recorded Confirmed Last Taken Type amLODIPine 10 mg PO DAILY #30 tab 05/18/17 04/17/20 Unknown Rx Active Meds: Active Medications Heparin Sodium (Porcine) (Heparin) 5,000 unit SUB-Q Q8HR CAMELIA Nicardipine HCl 50 mg/ Sodium (Chloride) 250 mls @ 25 mls/hr IV TITR CAMELIA; Katherine col Last Titration: 04/17/20 06:51 Dose: 4 mg/hr, 20 mls/hr Documented by: Magnesium Hydroxide (Milk Of Magnesia) 30 ml PO Q4H PRN PRN Reason: Constipation Ondansetron HCl (Zofran) 4 mg IV Q8H PRN PRN Reason: Nausea And Vomiting Sodium Chloride (Sodium Chloride Flush Syringe 10 Ml) 10 ml IV BID CAMELIA Sodium Chloride (Sodium Chloride Flush Syringe 10 Ml) 10 ml IV PRN PRN PRN Reason: LINE FLUSH Physical Examination Vital signs: Vital Signs Temp Pulse Resp BP Pulse Ox 98 F 94 H 18 237/132 100 04/16/20 20:45 04/16/20 20:45 04/16/20 20:45 04/16/20 20:45 04/16/20 20:45 Vitals reviewed General appearance: Present: no acute distress, well-nourished Facial flushing - EENT Eyes: Present: PERRL, EOM intact ENT: hearing intact, clear oral mucosa, dentition normal - Neck Neck: Present: supple, normal ROM - Respiratory Respiratory effort: normal Respiratory: bilateral: CTA - Cardiovascular Rhythm: regular Heart Sounds: Present: S1 & S2 - Extremities Extremities: no ischemia, pulses intact, pulses symmetrical, No edema, Full ROM Peripheral Pulses: within normal limits - Abdominal General gastrointestinal: Present: soft, non-tender, distended - Integumentary Integumentary: Present: clear, warm, dry - Musculoskeletal Musculoskeletal: strength equal bilaterally - Psychiatric Psychiatric: appropriate mood/affect,cooperative - Neurologic Neurologic: moves all extremities Results - Laboratory Findings CBC and BMP: 04/17/20 04:46 04/17/20 04:46 PT/INR, D-dimer PT 13.6 Sec. (12.2-14.9) 04/17/20 04:46 INR 1.06 (0.87-1.13) 04/17/20 04:46 Abnormal lab findings: Abnormal Labs 04/16/20 04/16/20 04/17/20 21:01 21:01 04:46 WBC 11.6 H RBC 5.50 H 5.49 H Hgb 17.1 H 17.2 H Hct 51.9 H 51.4 H Lymph % (Auto) 12.4 L Seg Neutrophils % 79.9 H 83.0 H Seg Neutrophils # 9.6 H Potassium 3.5 L Glucose 143 H Total Protein 8.9 H 04/17/20 04:46 WBC RBC Hgb Hct Lymph % (Auto) Seg Neutrophils % Seg Neutrophils # Potassium Glucose 154 H Total Protein Assessment and Plan -Hypertensive emergency -Headache -Nausea and vomiting -Erythrocytosis -Get CXR -Continue with oral antihypertensives -Symptomatic treatment o f headaches/nausea- CT head, CT abdomen/pelvis were unremarkable -Evaluation fro sleep apnea and nocturnal hypoxemia- patient has erythrocytosis -Counselling on the need for medical compliance -VTE prophylaxis -OK to downgrade patent admission to telemetry -All other care per attending and consultants Thank you for the consult Will follow. Please do not hesitate to call with questions and concerns
[2020-04-17] MEDS ORDERED: amLODIPine 5 MG TAB ONE (09:26)
[2020-04-17] MEDS ORDERED: hydroCHLOROthiazide 25 MG TAB ONE (09:27)
[2020-04-17] MEDS: CIPROFLOXACIN/DEXAMETH OTIC SUSP 7.5ML AU SCH ×2 (10:00→22:25)
[2020-04-17] MEDS ORDERED: HYDROcodone/ACETAMINOPHEN 5-325 MG TAB PO PRN (10:00)
[2020-04-17] MEDS: hydroCHLOROthiazide 25 MG TAB PO SCH (13:07)
[2020-04-17] MEDS: amLODIPine 10 MG TAB PO SCH (13:07)
[2020-04-17] MEDS: HEPARIN 5,000 UNIT/1 ML VIAL SUB-Q SCH ×2 (13:08→22:07)
--- NOTE | 2020-04-17 13:09 | Event Note ---
Date: 04/17/20 Patient seen and examined, Discussed with Nursing team to give oral meds before stopping Cardene drip. Patient reports that he has not been taken his medications. Patient understands risk of non compliance
--- NOTE | 2020-04-17 13:10 | Progress Note ---
Assessment and Plan Assessment and plan: 65-year-old male with known history of hypertension who is noncompliant with his medications presenting to the emergency room today complaining of headache, nausea and vomiting for 3 days. Patient has been on amlodipine in the past for his blood pressure. He denies any chest pain or shortness of breath, no abdominal pain or diarrhea, no fever or chills, Upon arrival in the emergency room patient was found to be quite hypertensive with blood pressure 237/132. He was given some IV labetalol and IV hydralazine without any significant improvement. Was subsequently started on nicardipine drip. Work-up so far in the emergency room including CT scan of the head has been unremarkable. CT A/P IMPRESSION: 1. No CT evidence of acute inflammatory or obstructive process within the abdomen or pelvis. 2. Additional findings as described above. - Patient Problems (1) Hypertensive emergency Current Visit: Yes Status: Acute Plan to address problem: Probably secondary to noncompliance with medication. Patient placed on nicardipine drip. Will monitor blood pressure closely. Discussed with the patient and he informs me that he does not take any medication at home Counselling was provided to the patient (2) Headache Current Visit: Yes Status: Acute Plan to address problem: Possibly secondary to the elevated blood pressure. Patient be given analgesic medication as needed for headache. (3) Nausea and vomiting Current Visit: Yes Status: Acute Plan to address problem: Patient placed on IV Zofran as needed. (4) DVT prophylaxis Current Visit: Yes Status: Acute Plan to address problem: Patient placed on subcutaneous heparin. (5) Full code status Current Visit: Yes Status: Acute History Interval history: Patient is seen and examined, no acute distress. Hospitalist Physical - Constitutional Vitals: Temp Pulse Resp BP Pulse Ox 99.2 F 89 18 194/105 100 04/17/20 11:35 04/17/20 11:35 04/17/20 11:35 04/17/20 11:35 04/17/20 11:35 General appearance: Present: no acute distress, well-nourished - EENT Eyes: Present: PERRL, EOM intact ENT: hearing intact - Neck Neck: Present: supple, normal ROM - Respiratory Respiratory effort: normal Respiratory: bilateral: CTA - Cardiovascular Rhythm: regular Heart Sounds: Present: S1 & S2. Absent: systolic murmur, diastolic murmur - Extremities Extremities: no ischemia, pulses intact, pulses symmetrical, No edema, normal temperature, normal color, Full ROM - Abdominal General gastrointestinal: soft, non-tender, non-distended, normal bowel sounds - Integumentary Integumentary: Present: clear, warm - Psychiatric Psychiatric: appropriate mood/affect, intact judgment & insight, cooperative - Neurologic Neurologic: CNII-XII intact, moves all extremities - Allied Health Allied health notes reviewed: nursing HEART Score - HEART Score Troponin: Troponin T < 0.010 ng/mL (0.00-0.029) 04/16/20 21:01 Results - Labs CBC & Chem 7: 04/17/20 04:46 04/17/20 04:46 Labs: Laboratory Last Values WBC 11.6 K/mm3 (4.5-11.0) H 04/17/20 04:46 RBC 5.49 M/mm3 (3.65-5.03) H 04/17/20 04:46 Hgb 17.2 gm/dl (11.8-15.2) H 04/17/20 04:46 Hct 51.4 % (35.5-45.6) H 04/17/20 04:46 MCV 94 fl (84-94) 04/17/20 04:46 MCH 31 pg (28-32) 04/17/20 04:46 MCHC 33 % (32-34) 04/17/20 04:46 RDW 14.1 % (13.2-15.2) 04/17/20 04:46 Plt Count 257 K/mm3 (140-440) 04/17/20 04:46 Lymph % (Auto) 12.4 % (13.4-35.0) L 04/17/20 04:46 [place] % (Auto) 4.3 % (0.0-7.3) 04/17/20 04:46 Eos % (Auto) 0.0 % (0.0-4.3) 04/17/20 04:46 Baso % (Auto) 0.3 % (0.0-1.8) 04/17/20 04:46 Lymph # 1.4 K/mm3 (1.2-5.4) 04/17/20 04:46 [place] # 0.5 K/mm3 (0.0-0.8) 04/17/20 04:46 Eos # 0.0 K/mm3 (0.0-0.4) 04/17/20 04:46 Baso # 0.0 K/mm3 (0.0-0.1) 04/17/20 04:46 Seg Neutrophils % 83.0 % (40.0-70.0) H 04/17/20 04:46 Seg Neutrophils # 9.6 K/mm3 (1.8-7.7) H 04/17/20 04:46 PT 13.6 Sec. (12.2-14.9) 04/17/20 04:46 INR 1.06 (0.87-1.13) 04/17/20 04:46 Sodium 140 mmol/L (137-145) 04/17/20 04:46 Potassium 3.7 mmol/L (3.6-5.0) 04/17/20 04:46 Chloride 99.2 mmol/L (98-107) 04/17/20 04:46 Carbon Dioxide 26 mmol/L (22-30) 04/17/20 04:46 Anion Gap 19 mmol/L 04/17/20 04:46 BUN 14 mg/dL (9-20) 04/17/20 04:46 Creatinine 1.2 mg/dL (0.8-1.5) 04/17/20 04:46 Estimated GFR > 60 ml/min 04/17/20 04:46 BUN/Creatinine Ratio 12 % 04/17/20 04:46 Glucose 154 mg/dL (75-100) H 04/17/20 04:46 Calcium 9.8 mg/dL (8.4-10.2) 04/17/20 04:46 Total Bilirubin 0.60 mg/dL (0.1-1.2) 04/16/20 21:01 Direct Bilirubin < 0.2 mg/dL (0-0.2) 04/16/20 21:01 Indirect Bilirubin 0.4 mg/dL 04/16/20 21:01 AST 26 units/L (5-40) 04/16/20 21:01 ALT 41 units/L (7-56) 04/16/20 21:01 Alkaline Phosphatase 66 units/L (35-129) 04/16/20 21:01 Troponin T < 0.010 ng/mL (0.00-0.029) 04/16/20 21:01 Total Protein 8.9 g/dL (6.3-8.2) H 04/16/20 21:01 Albumin 4.5 g/dL (3.9-5) 04/16/20 21:01 Albumin/Globulin Ratio 1.0 % 04/16/20 21:01 Bishop/IV: IV Catheter Type [Left Hand] INT / Saline Lock Active Medications - Current Medications Current Medications: Generic Name Dose Route Start Last Admin Trade Name Freq PRN Reason Stop Dose Admin Acetaminophen/Hydrocodone Bitart 1 each 04/17/20 10:00 [place] 5/325 PO Q4HR PRN Pain, Moderate (4-6) Amlodipine Besylate 10 mg 04/17/20 10:00 Amlodipine PO DAILY CAMELIA Ciprofloxacin/Dexamethasone 4 drops 04/17/20 10:00 Ciprodex AU BID CAMELIA Heparin Sodium (Porcine) 5,000 unit 04/17/20 14:00 Heparin SUB-Q Q8HR CAMELIA Hydralazine HCl 10 mg 04/17/20 13:01 Apresoline IV Q4HR PRN Hypertension Hydrochlorothiazide 25 mg 04/17/20 10:00 Hctz PO QDAY CAMELIA Nicardipine HCl 50 mg/ Sodium 250 mls @ 25 mls/hr 04/16/20 23:00 04/17/20 07:00 Chloride IV 3 mg/hr TITR CAMELIA 15 mls/hr Titration Protocol 5 MG/HR Magnesium Hydroxide 30 ml 04/16/20 23:03 Milk Of Magnesia PO Q4H PRN Constipation Ondansetron HCl 4 mg 04/16/20 23:03 Zofran IV Q8H PRN Nausea And Vomiting Sodium Chloride 10 ml 04/17/20 10:00 Sodium Chloride Flush Syringe 10 Ml IV BID CAMELIA Sodium Chloride 10 ml 04/16/20 23:03 Sodium Chloride Flush Syringe 10 Ml IV PRN PRN LINE FLUSH Nutrition/Malnutrition Assess - Dietary Evaluation Nutrition/Malnutrition Findings: Nutrition Notes Start: 04/17/20 09:04 Freq: Status: Active Protocol: Document 04/17/20 09:04 SALOMÓN (Rec: 04/17/20 09:05 LP [id number]) Nutrition Notes Need for Assessment generated from: MD Order Initial or Follow up Brief Note Current Diagnosis Hypertension Other Pertinent Diagnosis non-compliant with meds, N/V Current Diet Cardiac Labs/Tests BG 154 Weight Status Overweight Subjective/Other Information Consult for diet education. Pt in ED. Nutrition Intervention Follow-Up By: 04/18/20 Additional Comments Follow for diet education
[2020-04-17] MEDS: hydrALAZINE 20 MG/1 ML INJ IV PRN (17:19)
[2020-04-18] MEDS: HEPARIN 5,000 UNIT/1 ML VIAL SUB-Q SCH ×3 (05:34→21:47)
[2020-04-18] MEDS: hydrALAZINE 20 MG/1 ML INJ IV PRN ×2 (05:35→13:47)
--- NOTE | 2020-04-18 09:55 | XRay Report ---
CHEST 2 VIEWS INDICATION / CLINICAL INFORMATION: erythrocytosis, poorly controlled HTN. COMPARISON: None available. FINDINGS: SUPPORT DEVICES: None. HEART / MEDIASTINUM: No significant abnormality. LUNGS / PLEURA: No significant pulmonary or pleural abnormality. No pneumothorax. ADDITIONAL FINDINGS: No significant additional findings. IMPRESSION: 1. No acute findings. Signer Name: Wayne Contreras MD Signed: 04/18/2020 9:51 AM Workstation Name: [id number]
[2020-04-18] MEDS: hydroCHLOROthiazide 25 MG TAB PO SCH (09:58)
[2020-04-18] MEDS: amLODIPine 10 MG TAB PO SCH (09:58)
[2020-04-18] MEDS: VALSARTAN 160MG TAB PO SCH ×2 (10:03→21:47)
[2020-04-18] MEDS: CIPROFLOXACIN/DEXAMETH OTIC SUSP 7.5ML AU SCH ×2 (10:04→21:50)
--- NOTE | 2020-04-18 11:48 | Progress Note ---
Assessment and Plan Hypertensive emergency Headache Nausea and vomiting Erythrocytosis - CXR reviewed - Continue oral antihypertensives and adjust per resp[onse - Symptomatic treatment o f headaches/nausea (CT head, CT abdomen/pelvis were unremarkable) - outpatient evaluation for sleep apnea and nocturnal hypoxemia (patient has erythrocytosis) - Counselling on the need for medical compliance - prn supplemental oxygen to keep O2 sats > 90% - prn bronchodilators ([facility]) with pulm hygiene per RT - avoid nephrotoxins, renally dose all medications - mobility protocols to prevent pressure ulcers - prn analgesia per pain score - PT/OT as tolerated - GI & VTE prophylaxis - Flu & pneumovax per protocol - Pulmonary out patient follow up for PFTs and optimization of respiratory status - continue other care per attending / other consultants ... re-evaluate in am & prn Subjective Date of service: 04/18/20 Principal diagnosis: Hypertensive emergency; Headache; Nausea and vomiting; Erythrocytosis Interval history: Patient is seen today for: Hypertensive emergency; Headache; Nausea and vomiting; Erythrocytosis Seen and examined at bedside; 24hour events reviewed; nursing and respiratory care staff consulted; no adverse overnight events reported to me; resting peacefully in bed; no N/V/F/C; doing better Objective Vital Signs - 12hr 04/18/20 04/18/20 04/18/20 04:27 05:35 08:24 Temperature 98.0 F 97.9 F Pulse Rate 88 88 85 Respiratory 18 20 Rate Blood Pressure 170/105 170/105 184/100 O2 Sat by Pulse 97 97 Oximetry 04/18/20 04/18/20 04/18/20 09:58 10:00 10:03 Temperature Pulse Rate 104 H 85 104 H Respiratory Rate Blood Pressure 162/100 162/100 O2 Sat by Pulse Oximetry Constitutional: no acute distress Eyes: non-icteric ENT: oropharynx moist Neck: supple, no lymphadenopathy, no JVD Effort: mildly labored Ascultation: Bilateral: clear Percussion: Bilateral: not dull Cardiovascular: regular rate and rhythm Gastrointestinal: normoactive bowel sounds, soft, non-tender, non-distended Integumentary: normal Extremities: no cyanosis, pulses normal, no ischemia or petechiae Neurologic: non-focal exam (grossly), pupils equal and round, CN II-XII normal, motor strength normal and Psychiatric: mood appropriate, affect normal CBC and BMP: 04/17/20 04:46 04/17/20 04:46 ABG, PT/INR, D-dimer: PT/INR, D-dimer PT 13.6 Sec. (12.2-14.9) 04/17/20 04:46 INR 1.06 (0.87-1.13) 04/17/20 04:46 Abnormal lab findings: Abnormal Labs 04/16/20 04/16/20 04/17/20 21:01 21:01 04:46 WBC 11.6 H RBC 5.50 H 5.49 H Hgb 17.1 H 17.2 H Hct 51.9 H 51.4 H Lymph % (Auto) 12.4 L Seg Neutrophils % 79.9 H 83.0 H Seg Neutrophils # 9.6 H Potassium 3.5 L Glucose 143 H Total Protein 8.9 H 04/17/20 04:46 WBC RBC Hgb Hct Lymph % (Auto) Seg Neutrophils % Seg Neutrophils # Potassium Glucose 154 H Total Protein Chest x-ray: image reviewed (no acute process but hyperinflation) Allied health notes reviewed: nursing
--- NOTE | 2020-04-18 15:15 | Progress Note ---
Assessment and Plan Assessment and plan: 65-year-old male with known history of hypertension who is noncompliant with his medications presenting to the emergency room today complaining of headache, nausea and vomiting for 3 days. Patient has been on amlodipine in the past for his blood pressure. He denies any chest pain or shortness of breath, no abdominal pain or diarrhea, no fever or chills, Upon arrival in the emergency room patient was found to be quite hypertensive with blood pressure 237/132. He was given some IV labetalol and IV hydralazine without any significant improvement. Was subsequently started on nicardipine drip. Work-up so far in the emergency room including CT scan of the head has been unremarkable. CT A/P IMPRESSION: 1. No CT evidence of acute inflammatory or obstructive process within the abdomen or pelvis. 2. Additional findings as described above. 04/18: Chest x-ray shows no acute pathology. Patient's blood pressure still significantly elevated nicardipine drip has been discontinued we will start patient on labetalol 3 times daily in addition to valsartan anticipate discharge in a.m. headache has also resolved. - Patient Problems (1) Hypertensive emergency Current Visit: Yes Status: Acute Plan to address problem: Probably secondary to noncompliance with medication. Patient placed on nicardipine drip. Will monitor blood pressure closely. Discussed with the patient and he informs me that he does not take any medi cation at home Counselling was provided to the patient (2) Headache Current Visit: Yes Status: Acute Plan to address problem: Possibly secondary to the elevated blood pressure. Patient be given analgesic medication as needed for headache. (3) Nausea and vomiting Current Visit: Yes Status: Acute Plan to address problem: Patient placed on IV Zofran as needed. (4) DVT prophylaxis Current Visit: Yes Status: Acute Plan to address problem: Patient placed on subcutaneous heparin. (5) Full code status Current Visit: Yes Status: Acute History Interval history: Patient is seen and examined, no acute distress. BP still elevated Hospitalist Physical - Physical exam Narrative exam: VITAL SIGNS: Reviewed. GENERAL: The patient appears normally developed, Vital signs as documented. HEAD: No signs of head trauma. EYES: Pupils are equal. Extraocular motions intact. EARS: Hearing grossly intact. MOUTH: Oropharynx is normal. NECK: No adenopathy, no JVD. CHEST: Chest with clear breath sounds bilaterally. No wheezes, rales, or rhonchi. CARDIAC: Regular rate and rhythm. S1 and S2, without murmurs, gallops, or rubs. VASCULAR: No Edema. Peripheral pulses normal and equal in all extremities. ABDOMEN: Soft, non tender and non distended. No rebound or guarding, and no masses palpated. Bowel Sounds normal. MUSCULOSKELETAL: Good range of motion of all major joints. Extremities without clubbing, cyanosis or edema. NEUROLOGIC EXAM: Alert and oriented x 3 No focal sensory or strength deficits. Speech normal. Follows commands. PSYCHIATRIC: Mood normal. SKIN: detial exam as documented in skin assessment - Constitutional Vitals: Temp Pulse Resp BP Pulse Ox 98.0 F 93 H 20 175/103 97 04/18/20 12:06 04/18/20 13:47 04/18/20 12:06 04/18/20 13:47 04/18/20 12:06 General appearance: Present: no acute distress, well-nourished HEART Score - HEART Score Troponin: Troponin T < 0.010 ng/mL (0.00-0.029) 04/16/20 21:01 Results - Labs CBC & Chem 7: 04/17/20 04:46 04/17/20 04:46 Labs: Laboratory Last Values WBC 11.6 K/mm3 (4.5-11.0) H 04/17/20 04:46 RBC 5.49 M/mm3 (3.65-5.03) H 04/17/20 04:46 Hgb 17.2 gm/dl (11.8-15.2) H 04/17/20 04:46 Hct 51.4 % (35.5-45.6) H 04/17/20 04:46 MCV 94 fl (84-94) 04/17/20 04:46 MCH 31 pg (28-32) 04/17/20 04:46 MCHC 33 % (32-34) 04/17/20 04:46 RDW 14.1 % (13.2-15.2) 04/17/20 04:46 Plt Count 257 K/mm3 (140-440) 04/17/20 04:46 Lymph % (Auto) 12.4 % (13.4-35.0) L 04/17/20 04:46 [place] % (Auto) 4.3 % (0.0-7.3) 04/17/20 04:46 Eos % (Auto) 0.0 % (0.0-4.3) 04/17/20 04:46 Baso % (Auto) 0.3 % (0.0-1.8) 04/17/20 04:46 Lymph # 1.4 K/mm3 (1.2-5.4) 04/17/20 04:46 [place] # 0.5 K/mm3 (0.0-0.8) 04/17/20 04:46 Eos # 0.0 K/mm3 (0.0-0.4) 04/17/20 04:46 Baso # 0.0 K/mm3 (0.0-0.1) 04/17/20 04:46 Seg Neutrophils % 83.0 % (40.0-70.0) H 04/17/20 04:46 Seg Neutrophils # 9.6 K/mm3 (1.8-7.7) H 04/17/20 04:46 PT 13.6 Sec. (12.2-14.9) 04/17/20 04:46 INR 1.06 (0.87-1.13) 04/17/20 04:46 Sodium 140 mmol/L (137-145) 04/17/20 04:46 Potassium 3.7 mmol/L (3.6-5.0) 04/17/20 04:46 Chloride 99.2 mmol/L (98-107) 04/17/20 04:46 Carbon Dioxide 26 mmol/L (22-30) 04/17/20 04:46 Anion Gap 19 mmol/L 04/17/20 04:46 BUN 14 mg/dL (9-20) 04/17/20 04:46 Creatinine 1.2 mg/dL (0.8-1.5) 04/17/20 04:46 Estimated GFR > 60 ml/min 04/17/20 04:46 BUN/Creatinine Ratio 12 % 04/17/20 04:46 Glucose 154 mg/dL (75-100) H 04/17/20 04:46 POC Glucose 106 (70-105) H 04/18/20 12:16 Calcium 9.8 mg/dL (8.4-10.2) 04/17/20 04:46 Total Bilirubin 0.60 mg/dL (0.1-1.2) 04/16/20 21:01 Direct Bilirubin < 0.2 mg/dL (0-0.2) 04/16/20 21:01 Indirect Bilirubin 0.4 mg/dL 04/16/20 21:01 AST 26 units/L (5-40) 04/16/20 21:01 ALT 41 units/L (7-56) 04/16/20 21:01 Alkaline Phosphatase 66 units/L (35-129) 04/16/20 21:01 Troponin T < 0.010 ng/mL (0.00-0.029) 04/16/20 21:01 Total Protein 8.9 g/dL (6.3-8.2) H 04/16/20 21:01 Albumin 4.5 g/dL (3.9-5) 04/16/20 21:01 Albumin/Globulin Ratio 1.0 % 04/16/20 21:01 Bishop/IV: Voiding Method Urinal IV Catheter Type [Left Hand] INT / Saline Lock Active Medications - Current Medications Current Medications: Generic Name Dose Route Start Last Admin Trade Name Freq PRN Reason Stop Dose Admin Acetaminophen/Hydrocodone Bitart 1 each 04/17/20 10:00 [place] 5/325 PO Q4HR PRN Pain, Moderate (4-6) Amlodipine Besylate 10 mg 04/17/20 10:00 04/18/20 09:58 Amlodipine PO 10 mg DAILY CAMELIA Administration Ciprofloxacin/Dexamethasone 4 drops 04/17/20 10:00 04/18/20 10:04 Ciprodex AU Not Given BID [facility] Heparin Sodium (Porcine) 5,000 unit 04/17/20 14:00 04/18/20 13:47 Heparin SUB-Q 5,000 unit Q8HR CAMELIA Administration Hydralazine HCl 10 mg 04/17/20 14:00 04/18/20 13:47 Apresoline IV 10 mg Q4HR PRN Administration Hypertension Labetalol HCl 100 mg 04/18/20 14:00 Labetalol PO Q8HR [facility] Magnesium Hydroxide 30 ml 04/16/20 23:03 Milk Of Magnesia PO Q4H PRN Constipation Ondansetron HCl 4 mg 04/16/20 23:03 Zofran IV Q8H PRN Nausea And Vomiting Sodium Chloride 10 ml 04/17/20 10:00 04/18/20 10:04 Sodium Chloride Flush Syringe 10 Ml IV 10 ml BID CAMELIA Administration Sodium Chloride 10 ml 04/16/20 23:03 Sodium Chloride Flush Syringe 10 Ml IV PRN PRN LINE FLUSH Valsartan 160 mg 04/18/20 10:00 04/18/20 10:03 Diovan PO 160 mg BID CAMELIA Administration Nutrition/Malnutrition Assess - Dietary Evaluation Nutrition/Malnutrition Findings: Nutrition Notes Start: 04/17/20 09:04 Freq: Status: Active Protocol: Document 04/18/20 13:22 LM (Rec: 04/18/20 13:28 LM [id number]) Nutrition Notes Need for Assessment generated from: Education Initial or Follow up Brief Note Current Diagnosis Hypertension Other Pertinent Diagnosis non-compliant with meds Current Diet Cardiac Labs/Tests POC glu 106 Pertinent Medications Reviewed Height 6 ft Weight 100 kg [place] Body Weight (kg) 80.90 BMI 29.9 Weight Status Overweight Subjective/Other Information Pt stated he has had no wt loss and is eating. Provided HTN diet education to pt. Discussed food sources high in sodium and unhealthy fats. Discussed healthy food options for HTN. #1 Nutrition Diagnosis Food and nutrition-related knowledge deficit Etiology No prior HTN diet education As Evidenced by Signs and Symptoms Pt wanted HTN diet ed Nutrition Intervention Teaching Recipient Patient Learning Readiness Good Teaching Methods Discussion,Handout Response to Teaching Verbalize understanding Education Handouts Provided HTN MNT Barriers to Learning No Barriers RD phone number provided Yes Patient aware of follow up options Yes Revisit per MD consult or patient Sign Off request:
[2020-04-19] MEDS: HEPARIN 5,000 UNIT/1 ML VIAL SUB-Q SCH (06:36)
--- NOTE | 2020-04-19 07:29 | Discharge Summary ---
Providers - Providers Date of Admission: 04/16/20 22:49 Attending physician: MARGARET KEY MD 04/16/20 23:03 Consult to Dietitian/Nutrition [CONS] Routine Physician Instructions: Reason For Exam: Reason for Consult: Diet education Consult to Physician [CONS] Routine Comment: Consulting Provider: YAYA HUDSON Physician Instructions: Reason For Exam: hypertensive emergency Primary care physician: CURBSTONE SETTER Hospitalization Reason for admission: Hypertensive urgency Condition: Stable Hospital course: 65-year-old male with known history of hypertension who is noncompliant with his medications presenting to the emergency room today complaining of headache, nausea and vomiting for 3 days. Patient has been on amlodipine in the past for his blood pressure. He denies any chest pain or shortness of breath, no abdominal pain or diarrhea, no fever or chills, Upon arrival in the emergency room patient was found to be quite hypertensive with blood pressure 237/132. He was given some IV labetalol and IV hydralazine without any significant improvement. Was subsequently started on nicardipine drip. Work-up so far in the emergency room including CT scan of the head has been unremarkable. CT A/P IMPRESSION: 1. No CT evidence of acute inflammatory or obstructive process wit hin the abdomen or pelvis. 2. Additional findings as described above. 04/18: Chest x-ray shows no acute pathology. Patient's blood pressure still significantly elevated nicardipine drip has been discontinued we will start patient on labetalol 3 times daily in addition to valsartan anticipate discharge in a.m. headache has also resolved. 04/19: BP better controlled. No new issues, Headache resolved. No blurry vision. Pt stable for discharge, counselling provided again about Meds and BP control and risk of uncontrolled BP. Patient verbalized understanding. - Patient Problems (1) Hypertensive emergency (2) Headache (3) Nausea and vomiting Disposition: - TO HOME OR SELFCARE Time spent for discharge: 35 mins Core Measure Documentation - Palliative Care Palliative Care/ Comfort Measures: Not Applicable - Core Measures Any of the following diagnoses?: none Exam - Physical Exam Narrative exam: VITAL SIGNS: Reviewed. GENERAL: The patient appears normally developed, Vital signs as documented. HEAD: No signs of head trauma. EYES: Pupils are equal. Extraocular motions intact. EARS: Hearing grossly intact. MOUTH: Oropharynx is normal. NECK: No adenopathy, no JVD. CHEST: Chest with clear breath sounds bilaterally. No wheezes, rales, or rhonchi. CARDIAC: Regular rate and rhythm. S1 and S2, without murmurs, gallops, or rubs. VASCULAR: No Edema. Peripheral pulses normal and equal in all extremities. ABDOMEN: Soft, non tender and non distended. No rebound or guarding, and no masses palpated. Bowel Sounds normal. MUSCULOSKELETAL: Good range of motion of all major joints. Extremities without clubbing, cyanosis or edema. NEUROLOGIC EXAM: Alert and oriented x 3 No focal sensory or strength deficits. Speech normal. Follows commands. PSYCHIATRIC: Mood normal. SKIN: detial exam as documented in skin assessment - Constitutional Vitals: Temp Pulse Resp BP Pulse Ox 98.2 F 74 20 141/74 97 04/19/20 06:49 04/19/20 06:49 04/19/20 06:49 04/19/20 06:49 04/19/20 00:15 Plan Activity: advance as tolerated, fall precautions Diet: low fat, low salt Special Instructions: record daily BP diary Follow up with: PRIMARY CARE, [Primary Care Provider] - 3-5 Days Prescriptions: amLODIPine 10 mg PO DAILY #30 tab Valsartan [Diovan] 160 mg PO BID #60 tablet labetaloL [Labetalol 100mg TAB] 100 mg PO Q8HR #90 tablet
[2020-04-19] MEDS: CIPROFLOXACIN/DEXAMETH OTIC SUSP 7.5ML AU SCH (08:59)
[2020-04-19] MEDS: VALSARTAN 160MG TAB PO SCH (09:12)
[2020-04-19] MEDS: amLODIPine 10 MG TAB PO SCH (09:13)
[2020-04-19 09:14] VITALS: BP 157/94
--- NOTE | 2020-04-19 13:29 | Progress Note ---
Assessment and Plan Hypertensive emergency Headache Nausea and vomiting Erythrocytosis - CXR reviewed - Continue oral antihypertensives and adjust per resp[onse - Symptomatic treatment o f headaches/nausea (CT head, CT abdomen/pelvis were unremarkable) - outpatient evaluation for sleep apnea and nocturnal hypoxemia (patient has erythrocytosis) - Counselling on the need for medical compliance - prn supplemental oxygen to keep O2 sats > 90% - prn bronchodilators ([facility]) with pulm hygiene per RT - avoid nephrotoxins, renally dose all medications - mobility protocols to prevent pressure ulcers - prn analgesia per pain score - PT/OT as tolerated - GI & VTE prophylaxis - Flu & pneumovax per protocol - Pulmonary out patient follow up for PFTs and optimization of respiratory status - continue other care per attending / other consultants ... re-evaluate in am & prn Subjective Date of service: 04/19/20 Principal diagnosis: Hypertensive emergency; Headache; Nausea and vomiting; Erythrocytosis Interval history: Patient is seen today for: Hypertensive emergency; Headache; Nausea and vomiting; Erythrocytosis Seen and examined at bedside; 24hour events reviewed; nursing and respiratory care staff consulted; no adverse overnight events reported to me; resting peacefully in bed; no N/V/F/C; doing better opverall; no new issues today and BP better controlled Objective Vital Signs - 12hr 04/19/20 04/19/20 04/19/20 06:49 09:12 09:13 Temperature 98.2 F Pulse Rate 74 78 78 Respiratory 20 Rate Blood Pressure 157/94 157/94 Blood Pressure 141/74 [Left] Constitutional: no acute distress Eyes: non-icteric ENT: oropharynx moist Neck: supple, no JVD Effort: normal Ascultation: Bilateral: clear Percussion: Bilateral: not dull Cardiovascular: regular rate and rhythm Gastrointestinal: normoactive bowel sounds, soft, non-tender, non-distended Integumentary: normal Extremities: no cyanosis, no edema, pulses normal, no ischemia or petechiae Neurologic: non-focal exam, pupils equal and round, CN II-XII normal, motor strength normal and Psychiatric: mood appropriate, affect normal CBC and BMP: 04/17/20 04:46 04/17/20 04:46 ABG, PT/INR, D-dimer: PT/INR, D-dimer PT 13.6 Sec. (12.2-14.9) 04/17/20 04:46 INR 1.06 (0.87-1.13) 04/17/20 04:46 Abnormal lab findings: Abnormal Labs 04/16/20 04/16/20 04/17/20 21:01 21:01 04:46 WBC 11.6 H RBC 5.50 H 5.49 H Hgb 17.1 H 17.2 H Hct 51.9 H 51.4 H Lymph % (Auto) 12.4 L Seg Neutrophils % 79.9 H 83.0 H Seg Neutrophils # 9.6 H Potassium 3.5 L Glucose 143 H POC Glucose Total Protein 8.9 H 04/17/20 04/18/20 04/18/20 04:46 12:16 16:46 WBC RBC Hgb Hct Lymph % (Auto) Seg Neutrophils % Seg Neutrophils # Potassium Glucose 154 H POC Glucose 106 H 113 H Total Protein Allied health notes reviewed: nursing
== END 2020-04-19 12:50 | disposition home or self-care (01) ==
LOC: ED 20:34 → CC1 22:49 → INTOOBSV 22:49 → CC1 04-17 07:48 → 4A 04-17 10:34
PROVIDERS: ADMIT Internal Medicine Geriatric Medicine; ATTEND Internal Medicine
DX: I16.1 Hypertensive emergency (principal); R51 Headache; R11.2 Nausea with vomiting, unspecified; D75.1 Secondary polycythemia; Z79.899 Other long term (current) drug therapy
CPT/HCPCS: 36415; 70450; 71046; 74177; 80048; 80076; 82962; 84484; 85025; 85610; 93005; 96365; 96366; 96372; 96375; 96376; 99291; C9113; G0378; J0360; J1200; J1644; J2405; J2765; J7050; Q9967; 96374

== ENCOUNTER 2020-04-20 08:02 | Inpatient (IN) | payer BC ==
--- NOTE | 2020-04-20 08:51 | Emergency Department Report ---
ED General Adult HPI - General Chief complaint: Syncope Stated complaint: SYNCOPE Time Seen by Provider: 04/20/20 08:30 Source: patient, EMS Mode of arrival: Stretcher Limitations: No Limitations - History of Present Illness Initial comments: The patient presents to the emergency department via EMS for unresponsive episode. Per EMS the patient was found unresponsive by his and chest compressions were started for approximately 10 minutes. Upon EMS arrival the patient was sluggish but awake and alert. Patient has no complaints now states he feels fine. Patient denies any chest pain, shortness breath, or headache. Patient states he was recently discharged from the hospital for elevated blood pressure. -: Sudden Severity scale (0 -10): 1 Consistency: constant Improves with: none Worsens with: none Associated Symptoms: denies other symptoms Treatments Prior to Arrival: none - Related Data Previous Rx's Medication Instructions Recorded Last Taken Type Valsartan [Diovan] 160 mg PO BID #60 tablet 04/19/20 04/20/20 03:50 Rx amLODIPine 10 mg PO DAILY #30 tab 04/19/20 04/20/20 03:50 Rx labetaloL [Labetalol 100mg TAB] 100 mg PO Q8HR #90 tablet 04/19/20 04/20/20 03:50 Rx Allergies Allergy/AdvReac Type Severity Reaction Status Date / Time No Known Allergies Allergy Unverified 05/18/17 16:11 ED Review of Systems ROS: Stated complaint: SYNCOPE Other details as noted in HPI Comment: All other systems reviewed and negative Constitutional: denies: chills, fever Eyes: denies: eye pain, eye discharge, vision change ENT: denies: ear pain, throat pain Respiratory: denies: cough, shortness of breath, wheezing Cardiovascular: denies: chest pain, palpitations Endocrine: no symptoms reported Gastrointestinal: denies: abdominal pain, nausea, diarrhea Genitourinary: denies: urgency, dysuria Musculoskeletal: denies: back pain, joint swelling, arthralgia Skin: denies: rash, lesions Neurological: denies: headache, weakness, paresthesias Psychiatric: denies: anxiety, depression Hematological/Lymphatic: denies: easy bleeding, easy bruising ED Past Medical Hx - Past Medical History Previous Medical History?: Yes Hx Hypertension: Yes Hx CVA: Yes (2015) Hx Congestive Heart Failure: No Hx Diabetes: No Hx Asthma: No Hx COPD: No - Surgical History Past Surgical History?: No - Social History Smoking Status: Never Smoker Substance Use Type: None - Medications Home Medications: Home Medications Medication Instructions Recorded Confirmed Last Taken Type Valsartan [Diovan] 160 mg PO BID #60 tablet 04/19/20 04/20/20 04/20/20 03:50 Rx amLODIPine 10 mg PO DAILY #30 tab 04/19/20 04/20/20 04/20/20 03:50 Rx labetaloL [Labetalol 100mg TAB] 100 mg PO Q8HR #90 tablet 04/19/20 04/20/20 04/20/20 03:50 Rx ED Physical Exam - General Limitations: No Limitations General appearance: alert, in no apparent distress - Head Head exam: Present: atraumatic, normocephalic - Eye Eye exam: Present: normal appearance, PERRL, EOMI - ENT ENT exam: Present: mucous membranes moist - Neck Neck exam: Present: normal inspection - Respiratory Respiratory exam: Present: normal lung sounds bilaterally. Absent: respiratory distress - Cardiovascular Cardiovascular Exam: Present: regular rate, normal rhythm. Absent: systolic murmur, diastolic murmur, rubs, gallop - GI/Abdominal GI/Abdominal exam: Present: soft, normal bowel sounds. Absent: distended, tenderness - Rectal Rectal exam: Present: deferred - Extremities Exam Extremities exam: Present: normal inspection - Back Exam Back exam: Present: normal inspection - Neurological Exam Neurological exam: Present: alert, oriented X3, CN II-XII intact. Absent: motor sensory deficit - Psychiatric Psychiatric exam: Present: normal affect, normal mood - Skin Skin exam: Present: warm, dry, intact, normal color. Absent: rash ED Course Vital Signs 04/20/20 04/20/20 04/20/20 08:02 08:24 08:30 Temperature 98.6 F Pulse Rate 74 63 62 Respiratory 16 Rate Blood Pressure 129/75 Blood Pressure 151/83 [Left] O2 Sat by Pulse 97 97 97 Oximetry 04/20/20 04/20/20 04/20/20 08:46 09:00 09:16 Temperature Pulse Rate 62 68 68 Respiratory Rate Blood Pressure 129/75 129/75 129/75 Blood Pressure [Left] O2 Sat by Pulse 97 98 96 Oximetry 04/20/20 04/20/20 04/20/20 09:30 09:46 10:12 Temperature Pulse Rate 70 70 86 Respiratory 14 Rate Blood Pressure 129/75 129/75 129/75 Blood Pressure [Left] O2 Sat by Pulse 98 97 97 Oximetry 04/20/20 04/20/20 04/20/20 10:16 10:30 10:45 Temperature Pulse Rate 74 68 83 Respiratory 19 16 17 Rate Blood Pressure 129/75 129/75 129/75 Blood Pressure [Left] O2 Sat by Pulse 95 98 96 Oximetry 04/20/20 04/20/20 04/20/20 11:01 11:15 11:31 Temperature Pulse Rate 69 69 Respiratory 16 12 13 Rate Blood Pressure 129/75 129/75 129/75 Blood Pressure [Left] O2 Sat by Pulse 97 97 98 Oximetry 04/20/20 04/20/20 04/20/20 11:45 12:01 12:15 Temperature Pulse Rate 78 75 76 Respiratory 8 L 11 L 13 Rate Blood Pressure 129/75 118/72 118/72 Blood Pressure [Left] O2 Sat by Pulse 99 99 98 Oximetry 04/20/20 04/20/20 04/20/20 12:31 12:45 13:00 Temperature Pulse Rate 73 68 66 Respiratory 11 L 13 12 Rate Blood Pressure 138/88 138/88 142/79 Blood Pressure [Left] O2 Sat by Pulse 98 96 96 Oximetry 04/20/20 13:15 Temperature Pulse Rate 68 Respiratory 13 Rate Blood Pressure 142/79 Blood Pressure [Left] O2 Sat by Pulse 96 Oximetry ED Medical Decision Making - Lab Data Result diagrams: 04/20/20 08:50 04/20/20 08:56 Lab Results 04/20/20 04/20/20 04/20/20 Range/Units 08:50 08:56 08:56 WBC 6.6 (4.5-11.0) K/mm3 RBC 5.32 H (3.65-5.03) M/mm3 Hgb 16.6 H (11.8-15.2) gm/dl Hct 49.1 H (35.5-45.6) % MCV 92 (84-94) fl MCH 31 (28-32) pg MCHC 34 (32-34) % RDW 14.0 (13.2-15.2) % Plt Count 238 (140-440) K/mm3 Lymph % (Auto) 29.5 (13.4-35.0) % [place] % (Auto) 9.6 H (0.0-7.3) % Eos % (Auto) 0.3 (0.0-4.3) % Baso % (Auto) 0.4 (0.0-1.8) % Lymph # 1.9 (1.2-5.4) K/mm3 [place] # 0.6 (0.0-0.8) K/mm3 Eos # 0.0 (0.0-0.4) K/mm3 Baso # 0.0 (0.0-0.1) K/mm3 Seg Neutrophils % 60.2 (40.0-70.0) % Seg Neutrophils # 3.9 (1.8-7.7) K/mm3 PT 13.7 (12.2-14.9) Sec. INR 1.04 (0.87-1.13) Sodium 134 L (137-145) mmol/L Potassium 3.9 (3.6-5.0) mmol/L Chloride 92.7 L (98-107) mmol/L Carbon Dioxide 29 (22-30) mmol/L Anion Gap 16 mmol/L BUN 36 H (9-20) mg/dL Creatinine 1.7 H (0.8-1.5) mg/dL Estimated GFR 50 ml/min BUN/Creatinine Ratio 21 % Glucose 156 H (75-100) mg/dL Calcium 9.1 (8.4-10.2) mg/dL Magnesium 2.50 H (1.7-2.3) mg/dL Total Bilirubin 0.70 (0.1-1.2) mg/dL AST 33 (5-40) units/L ALT 35 (7-56) units/L Alkaline Phosphatase 58 (35-129) units/L Lactate Dehydrogenase 229 H (91-180) units/L Total Creatine Kinase 573 H (55-170) units/L CK-MB (CK-2) 4.4 H (0.0-4.0) ng/mL CK-MB (CK-2) Rel Index 0.7 (0-4) Troponin T 0.025 (0.00-0.029) ng/mL Total Protein 8.2 (6.3-8.2) g/dL Albumin 4.1 (3.9-5) g/dL Albumin/Globulin Ratio 1.0 % - EKG Data -: EKG Interpreted by Me EKG shows normal: sinus rhythm Rate: normal - Radiology Data Radiology results: report reviewed - Medical Decision Making CT of the chest was obtained to evaluate for pulmonary emboli which could present itself as a syncopal episode/unresponsiveness Discussed results with patient and the need for admission Critical care attestation.: If time is entered above; I have spent that time in minutes in the direct care of this critically ill patient, excluding procedure time. ED Disposition Clinical Impression: Unresponsive episode Disposition: DC-09 OP ADMIT IP TO THIS HOSP Is pt being admited?: Yes Does the pt Need Aspirin: Yes Condition: Fair - Assessment Assessment Interval: Baseline - Level of Consciousness 1a. Level of Consciousness: alert/keenly responsive - LOC Questions 1b. LOC Questions: answers both correctly - LOC Command 1c. LOC Commands: performs tasks correctly - Best Gaze 2. Best Gaze: normal - Visual 3. Visual: no visual loss - Facial Palsy 4. Facial Palsy: normal symmetrical movement - Motor Arm 5a. Motor Arm Left: no drift 5b. Motor Arm Right: no drift - Motor Leg 6a. Motor Leg Left: no drift 6b. Motor Leg Right: no drift - Limb Ataxia 7. Limb Ataxia: absent - Sensory 8. Sensory: normal - Best Language 9. Best Language: no aphasia - Dysarthria 10. Dysarthria: normal - Extinction and Inattention 11. Extinction/Inattention: no abnormality - Scoring Total Score: 0 Stroke Severity: No Stroke Symptoms
[2020-04-20 09:14] LABS: Basophils % (Auto) 0.4 % (0.0-1.8); Eosinophils % (Auto) 0.3 % (0.0-4.3); Hematocrit 49.1 % (35.5-45.6); Hemoglobin 16.6 gm/dl (11.8-15.2); Lymphocytes # (Auto) 1.9 K/mm3 (1.2-5.4); Lymphocytes % (Auto) 29.5 % (13.4-35.0); Mean Corpuscular HGB Conc 34 % (32-34); Mean Corpuscular Volume 92 fl (84-94); Monocytes # (Auto) 0.6 K/mm3 (0.0-0.8); Monocytes % (Auto) 9.6 % (0.0-7.3); Platelet Count 238 K/mm3 (140-440); Red Blood Count 5.32 M/mm3 (3.65-5.03)
[2020-04-20 09:40] LABS: Creatine Kinase MB 4.4 ng/mL (0.0-4.0)
[2020-04-20 09:41] LABS: Albumin 4.1 g/dL (3.9-5); Calcium 9.1 mg/dL (8.4-10.2)
[2020-04-20 10:04] LABS: INR 1.04 (0.87-1.13)
--- NOTE | 2020-04-20 10:04 | XRay Report ---
CHEST 1 VIEW INDICATION / CLINICAL INFORMATION: Syncope. COMPARISON: 04/18/2020 FINDINGS: SUPPORT DEVICES: None. HEART / MEDIASTINUM: Heart size is within normal limits with left ventricular configuration. LUNGS / PLEURA: No significant pulmonary or pleural abnormality. No pneumothorax. ADDITIONAL FINDINGS: No significant additional findings. IMPRESSION: 1. No acute findings. Signer Name: Wayne Contreras MD Signed: 04/20/2020 10:00 AM Workstation Name: [id number]
--- NOTE | 2020-04-20 10:42 | Cat Scan Report ---
CT head/brain wo con INDICATION / CLINICAL INFORMATION: MAIN: Syncopex 1day. TECHNIQUE: All CT scans at this location are performed using CT dose reduction for ALARA by means of automated e xposure control. COMPARISON: 04/16/2020 FINDINGS: No intracranial hemorrhage or abnormal extra-axial fluid collection. There is chronic right temporal parietal encephalomalacia which appears similar to the comparison kevin dy. Further maturation of the right posterior parietal/occipital infarction has occurred during interval. There is new extensive hypodensity in the left cerebellar hemisphere. There may be mild associated mass effect on the fourth ventricle. Small chronic lacunar infarction noted in the right basal ganglia. No abnormality of skeletal structures are not visualized paranasal sinuses. IMPRESSION: 1. New ischemic changes involving the left cerebellar hemisphere. 2. Progressive hypodensity in the right posterior parietal/occipital region consistent with maturatio n of prior infarct. 3. Chronic right temporoparietal encephalomalacia. Signer Name: Wayne Contreras MD Signed: 04/20/2020 10:38 AM Workstation Name: [id number]
--- NOTE | 2020-04-20 10:53 | Cat Scan Report ---
CT chest w con INDICATION / CLINICAL INFORMATION: MAIN: Syncope x1day [id number] 60 ml, GFR50. TECHNIQUE: All CT scans at this location are performed using CT dose reduction for ALARA by means of automated e xposure control. COMPARISON: None available. FINDINGS: No acute pulmonary disease. No evidence of pleural effusion. No mediastinal adenopathy. The ascending aorta is slightly ectatic measuring 3.7 cm. There is faint coronary artery calcification. Upper abdominal images show no acute abnormalities. No skeletal abnormality. IMPRESSION: 1. No acute abnormalities of the chest. 2. Mild ascending thoracic aortic ectasia. Signer Name: Wayne Contreras MD Signed: 04/20/2020 10:48 AM Workstation Name: [id number]
[2020-04-20] MEDS ORDERED: ASPIRIN 81 MG TAB CHEW PO ONE (10:58)
[2020-04-20 11:07] LABS: Bilirubin,Urine NEG (Negative); Blood,Urine NEG (Negative); Color,Urine Yellow (Yellow); Mucus,Urine FEW /HPF; Protein,Urine <15 mg/dL mg/dL (Negative); Urobilinogen,Urine < 2.0 mg/dL (<2.0)
[2020-04-20 11:13] LABS: Amphetamine Screen,Urine PRESUMPTIVE NEGATIVE; Benzodiazepines Screen,Urine PRESUMPTIVE NEGATIVE; Cannabinoid Screen,Urine PRESUMPTIVE NEGATIVE; Cocaine Screen,Urine PRESUMPTIVE NEGATIVE; Methadone Screen,Urine PRESUMPTIVE NEGATIVE; Opiate Screen,Urine PRESUMPTIVE NEGATIVE
--- NOTE | 2020-04-20 13:23 | History and Physical Report ---
History of Present Illness Date of examination: 04/20/20 Date of admission: 04/20/20 11:15 Chief complaint: unresponsiveness History of present illness: The patient presents to the emergency department via EMS for unresponsive episode. Per EMS the patient was found unresponsive by his and chest compressions were started for approximately 10 minutes. Upon EMS arrival the patient was sluggish but awake and alert. Patient has no complaints now states he feels fine. Patient denies any chest pain, shortness breath, or headache. Patient states he was recently discharged from the hospital for elevated blood pressure. Past History Past Medical History: hypertension Past Surgical History: No surgical history Social history: no significant social history Family history: no significant family history Medications and Allergies Allergies Allergy/AdvReac Type Severity Reaction Status Date / Time No Known Allergies Allergy Unverified 05/18/17 16:11 Home Medications Medication Instructions Recorded Confirmed Last Taken Type Valsartan [Diovan] 160 mg PO BID #60 tablet 04/19/20 04/20/20 04/20/20 03:50 Rx amLODIPine 10 mg PO DAILY #30 tab 04/19/20 04/20/20 04/20/20 03:50 Rx labetaloL [Labetalol 100mg TAB] 100 mg PO Q8HR #90 tablet 04/19/20 04/20/20 04/20/20 03:50 Rx Exam - Constitutional Vitals: Temp Pulse Resp BP Pulse Ox 98.6 F 68 13 142/79 96 04/20/20 08:02 04/20/20 13:15 04/20/20 13:15 04/20/20 13:15 04/20/20 13:15 HEART Score - HEART Score Troponin: WBC 6.6 K/mm3 (4.5-11.0) 04/20/20 08:50 RBC 5.32 M/mm3 (3.65-5.03) H 04/20/20 08:50 Hgb 16.6 gm/dl (11.8-15.2) H 04/20/20 08:50 Hct 49.1 % (35.5-45.6) H 04/20/20 08:50 MCV 92 fl (84-94) 04/20/20 08:50 MCH 31 pg (28-32) 04/20/20 08:50 MCHC 34 % (32-34) 04/20/20 08:50 RDW 14.0 % (13.2-15.2) 04/20/20 08:50 Plt Count 238 K/mm3 (140-440) 04/20/20 08:50 Lymph % (Auto) 29.5 % (13.4-35.0) 04/20/20 08:50 [place] % (Auto) 9.6 % (0.0-7.3) H 04/20/20 08:50 Eos % (Auto) 0.3 % (0.0-4.3) 04/20/20 08:50 Baso % (Auto) 0.4 % (0.0-1.8) 04/20/20 08:50 Lymph # 1.9 K/mm3 (1.2-5.4) 04/20/20 08:50 [place] # 0.6 K/mm3 (0.0-0.8) 04/20/20 08:50 Eos # 0.0 K/mm3 (0.0-0.4) 04/20/20 08:50 Baso # 0.0 K/mm3 (0.0-0.1) 04/20/20 08:50 Seg Neutrophils % 60.2 % (40.0-70.0) 04/20/20 08:50 Seg Neutrophils # 3.9 K/mm3 (1.8-7.7) 04/20/20 08:50 PT 13.7 Sec. (12.2-14.9) 04/20/20 08:56 INR 1.04 (0.87-1.13) 04/20/20 08:56 Sodium 134 mmol/L (137-145) L 04/20/20 08:56 Potassium 3.9 mmol/L (3.6-5.0) 04/20/20 08:56 Chloride 92.7 mmol/L (98-107) L 04/20/20 08:56 Carbon Dioxide 29 mmol/L (22-30) 04/20/20 08:56 Anion Gap 16 mmol/L 04/20/20 08:56 BUN 36 mg/dL (9-20) H 04/20/20 08:56 Creatinine 1.7 mg/dL (0.8-1.5) H 04/20/20 08:56 Estimated GFR 50 ml/min 04/20/20 08:56 BUN/Creatinine Ratio 21 % 04/20/20 08:56 Glucose 156 mg/dL (75-100) H 04/20/20 08:56 Calcium 9.1 mg/dL (8.4-10.2) 04/20/20 08:56 Magnesium 2.50 mg/dL (1.7-2.3) H 04/20/20 08:56 Total Bilirubin 0.70 mg/dL (0.1-1.2) 04/20/20 08:56 AST 33 units/L (5-40) 04/20/20 08:56 ALT 35 units/L (7-56) 04/20/20 08:56 Alkaline Phosphatase 58 units/L (35-129) 04/20/20 08:56 Lactate Dehydrogenase 229 units/L (91-180) H 04/20/20 08:56 Total Creatine Kinase 573 units/L (55-170) H 04/20/20 08:56 CK-MB (CK-2) 4.4 ng/mL (0.0-4.0) H 04/20/20 08:56 CK-MB (CK-2) Rel Index 0.7 (0-4) 04/20/20 08:56 Troponin T 0.025 ng/mL (0.00-0.029) 04/20/20 08:56 Total Protein 8.2 g/dL (6.3-8.2) 04/20/20 08:56 Albumin 4.1 g/dL (3.9-5) 04/20/20 08:56 Albumin/Globulin Ratio 1.0 % 04/20/20 08:56 Urine Color Yellow (Yellow) 04/20/20 10:57 Urine Turbidity Clear (Clear) 04/20/20 10:57 Urine pH 6.0 (5.0-7.0) 04/20/20 10:57 Ur Specific [place] 1.030 (1.003-1.030) 04/20/20 10:57 Urine Protein <15 mg/dl mg/dL (Negative) 04/20/20 10:57 Urine Glucose (UA) Neg mg/dL (Negative) 04/20/20 10:57 Urine Ketones Neg mg/dL (Negative) 04/20/20 10:57 Urine Blood Neg (Negative) 04/20/20 10:57 Urine Nitrite Neg (Negative) 04/20/20 10:57 Urine Bilirubin Neg (Negative) 04/20/20 10:57 Urine Urobilinogen < 2.0 mg/dL (<2.0) 04/20/20 10:57 Ur Leukocyte Esterase Neg (Negative) 04/20/20 10:57 Urine WBC (Auto) 1.0 /HPF (0.0-6.0) 04/20/20 10:57 Urine RBC (Auto) 1.0 /HPF (0.0-6.0) 04/20/20 10:57 Urine Mucus Few /HPF 04/20/20 10:57 Urine Opiates Screen Presumptive negative 04/20/20 10:57 Urine Methadone Screen Presumptive negative 04/20/20 10:57 Ur Barbiturates Screen Presumptive negative 04/20/20 10:57 Ur Phencyclidine Scrn Presumptive negative 04/20/20 10:57 Ur Amphetamines Screen Presumptive negative 04/20/20 10:57 U Benzodiazepines Scrn Presumptive negative 04/20/20 10:57 Urine Cocaine Screen Presumptive negative 04/20/20 10:57 U Marijuana (THC) Screen Presumptive negative 04/20/20 10:57 Drugs of Abuse Note Disclamer 04/20/20 10:57 Results - Labs CBC & Chem 7: 04/20/20 08:50 04/20/20 08:56 Labs: Abnormal lab results 04/20/20 04/20/20 Range/Units 08:50 08:56 RBC 5.32 H (3.65-5.03) M/mm3 Hgb 16.6 H (11.8-15.2) gm/dl Hct 49.1 H (35.5-45.6) % [place] % (Auto) 9.6 H (0.0-7.3) % Sodium 134 L (137-145) mmol/L Chloride 92.7 L (98-107) mmol/L BUN 36 H (9-20) mg/dL Creatinine 1.7 H (0.8-1.5) mg/dL Glucose 156 H (75-100) mg/dL Magnesium 2.50 H (1.7-2.3) mg/dL Lactate Dehydrogenase 229 H (91-180) units/L Total Creatine Kinase 573 H (55-170) units/L CK-MB (CK-2) 4.4 H (0.0-4.0) ng/mL Assessment and Plan Acute encephalopathy/syncope - due to acute CVA Acute CVA - consult tele neurology - asp, statin, follow SBP CT brain: 1. New ischemic changes involving the left cerebellar hemisphere. 2. Progressive hypodensity in the right posterior parietal/occipital region consistent with maturation of prior infarct. 3. Chronic right temporoparietal encephalomalacia.
[2020-04-20] MEDS ORDERED: PROMETHAZINE 25 MG RECT SUPP PR PRN (13:25)
[2020-04-20] MEDS ORDERED: MAGNESIUM HYDROXIDE (MOM) ORAL LIQD UDC PO PRN (13:25)
[2020-04-20] MEDS ORDERED: ONDANSETRON 4 MG/2 ML INJ IV PRN (13:25)
[2020-04-20] MEDS ORDERED: METOCLOPRAMIDE 10 MG TAB PO PRN (13:25)
--- NOTE | 2020-04-20 13:43 | Consultation ---
History of Present Illness History of present illness: [facility] Date of Service: 04/20/2020 13:27:12 Impression: Stroke Comments/Sign-Out: 65 y/o man admitted for possible cardiac arrest. CT head shows incidental acute left cerebellar stroke. Patient pending stroke work-up. Metrics: Last Known Well: Unknown [facility] Notification Time: 04/20/2020 13:27:12 Stamp Time: 04/20/2020 13:27:12 Time First Login Attempt: 04/20/2020 13:30:14 Video Start Time: 04/20/2020 13:30:14 Symptoms: syncope NIHSS Start Assessment Time: 04/20/2020 13:31:48 Patient is not a candidate for tPA. Patient was not deemed candidate for tPA thrombolytics because of Stroke present on CT. Last known well > 4.5 hours. Video End Time: 04/20/2020 13:41:19 CT head was reviewed. Clinical Presentation is not Suggestive of Large Vessel Occlusive Disease. Large left cerebellar stroke already present on CT head. Our recommendations are outlined below. Recommendations: Activate Stroke Protocol Admission/Order Set Stroke/Telemetry Floor Neuro Checks Bedside Swallow Eval DVT Prophylaxis IV Fluids, Normal Saline Head of Bed 30 Degrees Euglycemia and Avoid Hyperthermia (PRN Acetaminophen) ASA if no contraindication Routine Consultation with Inhouse Neurology for Follow up Care Sign Out: Discussed with Emergency Department Provider History of Present Illness: Patient is a 65 year old Male. Inpatient stroke alert was called for symptoms of syncope 65 y/o man admitted for syncope and possible cardiac arrest earlier this morning. He has a h/o stroke (residual left arm weakness Unknown last known well. Patient also had a CT on 04/16. [facility] telestroke consult requested for CT head findings today. Case discussed with ED attending at bedside. CT head on 04/20 shows an acute left cerebellar infarct. Examination: 1A: Level of Consciousness - Alert; keenly responsive + 0 1B: Ask Month and Age - Both Questions Right + 0 1C: Blink Eyes & Squeeze Hands - Performs Both Tasks + 0 2: Test Horizontal Extraocular Movements - Normal + 0 3: Test Visual Sanchez - No Visual Loss + 0 4: Test Facial Palsy (Use Grimace if Obtunded) - Normal symmetry + 0 5A: Test Left Arm Motor Drift - Drift, but doesn't hit bed + 1 5B: Test Right Arm Motor Drift - No Drift for 10 Seconds + 0 6A: Test Left Leg Motor Drift - No Drift for 5 Seconds + 0 6B: Test Right Leg Motor Drift - No Drift for 5 Seconds + 0 7: Test Limb Ataxia (FNF/Heel-[place]) - No Ataxia + 0 8: Test Sensation - Mild-Moderate Loss: Less Sharp/More Dull + 1 9: Test Language/Aphasia - Normal; No aphasia + 0 10: Test Dysarthria - Normal + 0 11: Test Extinction/Inattention - No abnormality + 0 NIHSS Score: 2 Patient/Family was informed the Neurology Consult would happen via TeleHealth consult by way of interactive audio and video telecommunications and consented to receiving care in this manner. Due to the immediate potential for life-threatening deterioration due to underlying acute neurologic illness, I spent 15 minutes providing critical care. This time includes time for face to face visit via telemedicine, review of medical records, imaging studies and discussion of findings with providers, the patient and/or family. Dr Emanuel Quijano [facility] Case [id number] Medications and Allergies Allergies Allergy/AdvReac Type Severity Reaction Status Date / Time No Known Allergies Allergy Unverified 05/18/17 16:11 Home Medications Medication Instructions Recorded Confirmed Last Taken Type Valsartan [Diovan] 160 mg PO BID #60 tablet 04/19/20 04/20/20 04/20/20 03:50 Rx amLODIPine 10 mg PO DAILY #30 tab 04/19/20 04/20/20 04/20/20 03:50 Rx labetaloL [Labetalol 100mg TAB] 100 mg PO Q8HR #90 tablet 04/19/20 04/20/20 04/20/20 03:50 Rx Active Meds: Active Medications Acetaminophen (Tylenol) 650 mg PO Q4H PRN PRN Reason: Pain, Mild (1-3) Aspirin (Aspirin) 325 mg PO QDAY [place] Atorvastatin Calcium (Lipitor) 80 mg PO QHS [facility] Bisacodyl (Dulcolax) 10 mg [place] QDAY PRN PRN Reason: Constipation Famotidine (Pepcid) 10 mg IV QDAY [facility] Magnesium Hydroxide (Milk Of Magnesia) 30 ml PO Q4H PRN PRN Reason: Constipation Metoclopramide HCl (Reglan) 10 mg PO Q6H PRN PRN Reason: Nausea And Vomiting Ondansetron HCl (Zofran) 4 mg IV Q8H PRN PRN Reason: Nausea And Vomiting Promethazine HCl (Phenergan) 25 mg [place] Q6H PRN PRN Reason: Nausea And Vomiting Sodium Chloride (Sodium Chloride Flush Syringe 10 Ml) 10 ml IV PRN PRN PRN Reason: LINE FLUSH Physical Examination - Vital Signs Vital Signs: Vital Signs Temp Pulse Resp BP Pulse Ox 98.6 F 74 16 151/83 97 04/20/20 08:02 04/20/20 08:02 04/20/20 08:02 04/20/20 08:02 04/20/20 08:02 Results - Laboratory Findings CBC and BMP: 04/20/20 08:50 04/20/20 08:56 Abnormal Lab Findings: Abnormal Labs 04/20/20 04/20/20 08:50 08:56 RBC 5.32 H Hgb 16.6 H Hct 49.1 H [place] % (Auto) 9.6 H Sodium 134 L Chloride 92.7 L BUN 36 H Creatinine 1.7 H Glucose 156 H Magnesium 2.50 H Lactate Dehydrogenase 229 H Total Creatine Kinase 573 H CK-MB (CK-2) 4.4 H
[2020-04-20] MEDS ORDERED: FAMOTIDINE 20 MG/2 ML INJ IV ONE (14:01)
[2020-04-20] MEDS: FAMOTIDINE 20 MG/2 ML INJ IV SCH (14:29)
--- NOTE | 2020-04-20 15:54 | Magnetic Resonance Report ---
MRI BRAIN WITHOUT CONTRAST INDICATION / CLINICAL INFORMATION: acute CVA. TECHNIQUE: Multiplanar, multisequence MR images of the brain were obtained. COMPARISON: Head CT 04/16/2020 and 04/20/2020 FINDINGS: BRAIN / INTRACRANIAL CONTENTS: Evaluation of diffusion weighted images reveals several large areas of infarction. There is a large s ubacute left cerebellar infarction associated with mass effect and potential compression of the aqued uct of Sylvius. Close follow-up is advised to assess for development of possible hydrocephalus as mas s effect is expected to increase in this region. There is an adjacent punctate focus of restricted di ffusion in the posterior aspect of the chris to the left of the aqueduct of Sylvius. A second large ar ea of infarction is seen along the posterior lateral aspect of the right occipital lobe. In addition multiple smaller foci of subacute infarction are observed in the right temporal operculum. Small foci of restricted diffusion are also identified in the right parietal lobe posteriorly. These findings r eflect multiple infarctions in different vascular distributions suggesting possible embolic etiology. Areas of encephalomalacia are demonstrated involving the right frontal operculum secondary to remote right MCA infarction. There is evidence of remote small deep infarction in the white matter of the ce ntrum semiovale of the left frontal lobe. Ventricles and cortical sulci are normal in size and configuration. There is no mass effect. No evide nce of intracranial hemorrhage or extra-axial fluid collection is seen. No significant areas of abnor mal brain parenchymal signal intensity are identified. CRANIOCERVICAL JUNCTION: No abnormalities are identified at the craniocervical junction. VASCULAR FLOW-VOIDS: Normal flow-voids are present within the major intracranial vessels. ORBITS: The orbits have an unremarkable appearance. SINUSES / MASTOIDS: There is no indication of inflammatory disease in the paranasal sinuses or mastoi d air cells. ADDITIONAL FINDINGS: None. IMPRESSION: 1. Multiple subacute infarctions in a variety of vascular distributions suggesting possible embolic e tiology. 2. Encephalomalacia in the right frontal operculum secondary to remote right MCA infarction. 2. Large left cerebellar infarction. Close clinical and imaging follow-up is suggested. Mass effect m ay increase and hydrocephalus is a potential complication of this large cerebellar infarction. There is no indication of hydrocephalus at this time. Signer Name: Xavier Hernandez MD Signed: 04/20/2020 3:49 PM Workstation Name: [id number]
[2020-04-21 05:16] LABS: Chol/HDL Ratio 3.57 %
[2020-04-21 09:44] LABS: Calcium 8.9 mg/dL (8.4-10.2)
--- NOTE | 2020-04-21 10:05 | Vascular Lab Report ---
VL carotid duplex BILAT INDICATION / CLINICAL INFORMATION: stroke. COMPARISON: None available. FINDINGS: NASCET criteria were used for stenosis determination. Right common carotid peak systolic velocity 93 Right common carotid end-diastolic velocity 16 Right internal carotid peak systolic velocity 46 Right internal carotid end-diastolic velocity 17 Left common carotid peak systolic velocity 62 Left common carotid end-diastolic velocity 13 Left internal carotid peak systolic velocity 83 Left internal carotid end-diastolic velocity 30 Antegrade vertebral flow is demonstrated bilaterally. IMPRESSION: 1. Less than 50% stenosis of the common and internal carotid arteries. Signer Name: Wayne Contreras MD Signed: 04/21/2020 10:00 AM Workstation Name: [id number]
--- NOTE | 2020-04-21 10:28 | Progress Note ---
Subjective Date of service: 04/21/20 Interval history: went over the MRI and there are widespread infarcts in the left cerebellum and right posterior parietal occipital lobe suspect multiple emboli carotid and ECHO are omportant to review will look at CT and follow patient before specific rec's fortunately there is no severe edema of the cerebellum but patient will need to be followed for this Objective - Vital Sign Vital Signs - 12hr 04/20/20 04/21/20 04/21/20 22:51 04:59 07:10 Temperature 98.4 F 98.7 F 98.4 F Pulse Rate 77 72 73 Respiratory 18 18 20 Rate Blood Pressure 151/90 171/74 139/90 O2 Sat by Pulse 98 100 98 Oximetry - Laboratory Findings CBC and BMP: 04/20/20 08:50 04/21/20 03:42 Abnormal Lab Findings: Abnormal Labs 04/20/20 04/20/20 04/21/20 08:50 08:56 03:42 RBC 5.32 H Hgb 16.6 H Hct 49.1 H [place] % (Auto) 9.6 H Sodium 134 L 133 L Chloride 92.7 L 94.7 L Carbon Dioxide 18 L D BUN 36 H 32 H Creatinine 1.7 H 1.6 H Glucose 156 H POC Glucose Magnesium 2.50 H Lactate Dehydrogenase 229 H Total Creatine Kinase 573 H CK-MB (CK-2) 4.4 H 04/21/20 06:09 RBC Hgb Hct [place] % (Auto) Sodium Chloride Carbon Dioxide BUN Creatinine Glucose POC Glucose 108 H Magnesium Lactate Dehydrogenase Total Creatine Kinase CK-MB (CK-2)
[2020-04-21] MEDS: ASPIRIN 325 MG TAB PO SCH (11:04)
[2020-04-21] MEDS: FAMOTIDINE 20 MG/2 ML INJ IV SCH (11:04)
[2020-04-21] MEDS: ACETAMINOPHEN 325 MG TAB PO PRN ×2 (11:05→21:53)
--- NOTE | 2020-04-21 13:56 | History and Physical Report ---
History of Present Illness Date of examination: 04/20/20 Date of admission: 04/21/20 08:00 Chief complaint: unresponsiveness History of present illness: This is a 65-year-old -[place]is[place] male with history of hypertension who recently discharged just yesterday now presented to emergency department by EMS for unresponsive episode. Per EMS the patient was found unresponsive by his and chest compressions were started for approximately 10 minutes. Upon EMS arrival the patient was sluggish but awake and alert. Patient currently denies any chest pain, shortness breath, or headache, he does not have any focal deficit. Patient states he was recently discharged from the hospital after being managed for uncontrolled hypertension. CT scan of the head in the ER showed left cerebral infarct, which is a new finding compared to his prior CT scan which is obtained on April 16, 2020. Telemetry neurology consulted from the ER and patient being admitted for further evaluation and management. Past History Past Medical History: hypertension, prior CVA Past Surgical History: No surgical history Social history: no significant social history Family history: no significant family history Review of System: Constitutional: no fever, no chills, no weight loss Ears, eyes, nose, mouth and throat: no nasal congestion, no nasal discharge, no sinus pressure, no vision change, no red eye. Neck: No neck pain or rigidity. Cardiovascular: No chest pain, no orthopnea, no palpitations, no leg swelling Respiratory: No shortness of breath, no cough, no congestion, no wheezing Gastrointestinal: no abdominal pain, no nausea, no vomiting Genitourinary : no dysuria, no hematuria Musculoskeletal: no joint swelling or muscle ache Integumentary: no rash, no pruritis Neurological: no parathesias, no numbness, no tingling Endocrine: no cold or heat intolerance, no polyuria or polydipsia Hematologic/Lymphatic: no easy bruising, no easy bleeding, no gland swelling Allergic/Immunologic: no urticaria, no angioedema. Medications and Allergies Allergies Allergy/AdvReac Type Severity Reaction Status Date / Time No Known Allergies Allergy Unverified 05/18/17 16:11 Home Medications Medication Instructions Recorded Confirmed Last Taken Type Valsartan [Diovan] 160 mg PO BID #60 tablet 04/19/20 04/20/20 04/20/20 03:50 Rx amLODIPine 10 mg PO DAILY #30 tab 04/19/20 04/20/2020 03:50 Rx labetaloL [Labetalol 100mg TAB] 100 mg PO Q8HR #90 tablet 04/19/20 04/20/20 04/20/20 03:50 Rx Active Meds: Active Medications Acetaminophen (Tylenol) 650 mg PO Q4H PRN PRN Reason: Pain, Mild (1-3) Last Admin: 04/21/20 11:05 Dose: 650 mg Documented by: Aspirin (Aspirin) 325 mg PO QDAY [facility] Last Admin: 04/21/20 11:04 Dose: 325 mg Documented by: Atorvastatin Calcium (Lipitor) 80 mg PO QHS [facility] Last Admin: 04/20/20 22:17 Dose: 80 mg Documented by: Bisacodyl (Dulcolax) 10 mg [place] QDAY PRN PRN Reason: Constipation Famotidine (Pepcid) 20 mg PO BID [facility] Sodium Chloride (Nacl 0.9% 1000 Ml) 1,000 mls @ 75 mls/hr IV DIRECT [facility] Magnesium Hydroxide (Milk Of Magnesia) 30 ml PO Q4H PRN PRN Reason: Constipation Metoclopramide HCl (Reglan) 10 mg PO Q6H PRN PRN Reason: Nausea And Vomiting Ondansetron HCl (Zofran) 4 mg IV Q8H PRN PRN Reason: Nausea And Vomiting Promethazine HCl (Phenergan) 25 mg [place] Q6H PRN PRN Reason: Nausea And Vomiting Sodium Chloride (Sodium Chloride Flush Syringe 10 Ml) 10 ml IV PRN PRN PRN Reason: LINE FLUSH Exam - Physical Exam Narrative exam: GENERAL: well-developed and well-nourished -[place] male lying on bed appeared to be in no discomfort. HEENT: Normocephalic. Atraumatic. No conjunctival congestion or icterus. Patient has moist mucous membranes. NECK: Supple. Trachea midline. CHEST/LUNGS: Clear to auscultated bilaterally, breathing nonlabored. No wheezes crackles or rhonchi. HEART/CARDIOVASCULAR: Regular in rate and rhythm. S1 and S2 positive. ABDOMEN: Abdomen is soft, nontender. Patient has normal bowel sounds. SKIN: There is no rash. Warm and dry. NEURO: No focal motor deficit. Follows command. MUSCULOSKELETAL: No joint effusion or tenderness. EXTRIMITY: No edema, no cyanosis or clubbing. PSYCH: Cooperative. - Constitutional Vitals: Temp Pulse Resp BP Pulse Ox 98.4 F 73 18 139/90 99 04/21/20 07:10 04/21/20 07:10 04/21/20 08:00 04/21/20 07:10 04/21/20 08:00 HEART Score - HEART Score Troponin: Troponin T 0.025 ng/mL (0.00-0.029) 04/20/20 08:56 Results - Labs CBC & Chem 7: 04/20/20 08:50 04/21/20 03:42 Labs: Abnormal lab results 04/21/20 04/21/20 04/21/20 Range/Units 03:42 06:09 11:55 Sodium 133 L (137-145) mmol/L Chloride 94.7 L (98-107) mmol/L Carbon Dioxide 18 L D (22-30) mmol/L BUN 32 H (9-20) mg/dL Creatinine 1.6 H (0.8-1.5) mg/dL POC Glucose 108 H 128 H (70-105) Assessment and Plan Acute encephalopathy/syncope - likely due to acute CVA -Continue to do frequent neuro check up and monitor clinically -Supportive care and treat underlying cause Acute CVA - We will admit the patient to remote telemetry - We'll place on aspirin and statin, will consult neurology - CT scan of the head obtained in the ER and shows New ischemic changes involving the left cerebellar hemisphere - We will get MRI of the head, carotid Doppler, 2-D echocardiogram - We will also get hemoglobin A1c level and fasting lipid panel - Allow permissive hypertension, will hold BP meds if patient is taking any at home - Consult PTOT and speech therapist -We will put on cardiac diet if passes bedside swallow study - Further management will be based on pending lab results and imaging studies QUIN[place], likely due to vasomotor nephropathy -Continue IV fluid, monitor BMP History of prior CVA -Does does not have any focal neurological deficit, continue to monitor clinically -Follow PT eval Hypertension, BP appears to be stable, continue to hold home medications - We'll place on GI prophylaxis to avoid stress ulcer - Place on DVT prophylaxis CT brain: 1. New ischemic changes involving the left cerebellar hemisphere. 2. Progressive hypodensity in the right posterior parietal/occipital region consistent with maturation of prior infarct. 3. Chronic right temporoparietal encephalomalacia.
--- NOTE | 2020-04-21 14:04 | Progress Note ---
Assessment and Plan Acute encephalopathy/syncope - likely due to acute CVA -Continue to do frequent neuro check up and monitor clinically -Supportive care and treat underlying cause Acute CVA - on aspirin and statin, consulted neurology - CT scan of the head obtained in the ER and shows New ischemic changes involving the left cerebellar hemisphere - MRI of the head showed Large left cerebellar infarction, carotid Doppler w/o any sig stenosis, 2-D echocardiogram showed Ef 45-50% - will repeat CT head today for any possible hemorrhagic changes or progression of stroke as it appears to be a large one - follow PTOT eval - On cardiac diet - Further management will be based on pending lab results and imaging studies QUINCY, likely due to vasomotor nephropathy -Continue IV fluid, monitor BMP History of prior CVA -Does does not have any focal neurological deficit, continue to monitor clinically -Follow PT eval Hypertension, BP appears to be stable, continue to hold home medications - We'll place on GI prophylaxis to avoid stress ulcer - Place on DVT prophylaxis 04/21: - will repeat CT head today for any possible hemorrhagic changes or progression of stroke as it appears to be a large one. wait PT eval Brief History; This is a 65-year-old -[place] male with history of hypertension who recently discharged now presented to emergency department by EMS for unresponsive episode. Per EMS the patient was found unresponsive by his and chest compressions were started for approximately 10 minutes. Upon EMS arrival the patient was sluggish but awake and alert. CT scan of the head in the ER showed left cerebral infarct, which is a new finding compared to his prior CT scan which is obtained on April 16, 2020. Telemetry neurology consulted from the ER and patient was admitted for further evaluation and management. Radiological data: CT brain: 1. New ischemic changes involving the left cerebellar hemisphere. 2. Progressive hypodensity in the right posterior parietal/occipital region consistent with maturation of prior infarct. 3. Chronic right temporoparietal encephalomalacia. MRI brain; 1. Multiple subacute infarctions in a variety of vascular distributions suggesting possible embolic etiology. 2. Encephalomalacia in the right frontal operculum secondary to remote right MCA infarction. 2. Large left cerebellar infarction. Close clinical and imaging follow-up is suggested. Mass effect may increase and hydrocephalus is a potential complication of this large cerebellar infarction. There is no indication of hydrocephalus at this time. 2d echo: EF 45-50% carotid doppler: 1. Less than 50% stenosis of the common and internal carotid arteries. Subjective Date of service: 04/21/20 Interval history: patient seen and examined c/o reduced vision, difficulty in findings words and left sided weakness no chest pain or SOB PT eval pending Objective - Exam Narrative Exam: GENERAL: well-developed and well-nourished -[place] male lying on bed appeared to be in no discomfort. HEENT: Normocephalic. Atraumatic. No conjunctival congestion or icterus. Patient has moist mucous membranes. NECK: Supple. Trachea midline. CHEST/LUNGS: Clear to auscultated bilaterally, breathing nonlabored. No wheezes crackles or rhonchi. HEART/CARDIOVASCULAR: Regular in rate and rhythm. S1 and S2 positive. ABDOMEN: Abdomen is soft, nontender. Patient has normal bowel sounds. SKIN: There is no rash. Warm and dry. NEURO: left sided weakness. reduced vision, Follows command. MUSCULOSKELETAL: No joint effusion or tenderness. EXTRIMITY: No edema, no cyanosis or clubbing. PSYCH: Cooperative. - Constitutional Vitals: Vital Signs - 12hr 04/21/20 04/21/20 04/21/20 04:59 07:10 08:00 Temperature 98.7 F 98.4 F Pulse Rate 72 73 Respiratory 18 20 Rate Respiratory 18 Rate [MISHRA] Blood Pressure 171/74 139/90 O2 Sat by Pulse 100 98 99 Oximetry - Labs CBC & Chem 7: 04/20/20 08:50 04/22/20 04:34 Labs: Abnormal lab results 04/21/20 04/21/20 04/21/20 Range/Units 03:42 06:09 11:55 Sodium 133 L (137-145) mmol/L Chloride 94.7 L (98-107) mmol/L Carbon Dioxide 18 L D (22-30) mmol/L BUN 32 H (9-20) mg/dL Creatinine 1.6 H (0.8-1.5) mg/dL POC Glucose 108 H 128 H (70-105) HEART Score - HEART Score Troponin: Troponin T 0.025 ng/mL (0.00-0.029) 04/20/20 08:56
--- NOTE | 2020-04-21 16:20 | Cat Scan Report ---
NONENHANCED CT SCAN OF THE HEAD: INDICATION / CLINICAL INFORMATION: 65 years Male; acute CVA. TECHNIQUE: Routine CT head without contrast. All CT scans at this location are performed using CT dos e reduction for ALARA by means of automated exposure control. COMPARISON: CT scan of the head from 04/20/2020 and 04/16/2020. FINDINGS: BRAIN / INTRACRANIAL CONTENTS: 1. Left cerebellar hemisphere infarction involving superior cerebellar artery territory and posterior inferior cerebellar artery territory has not progressed. Mass effect over the fourth ventricle has n ot increased. No hemorrhagic changes are seen. 2. Subacute infarction in the right posterior parietal border zone has not expanded. 3. As seen in the last CT scan, focal areas of encephalomalacia are seen in the right frontal opercul um extending into insular cortex and putamen and right caudate. 4. Subtle chronic white matter ischemic areas 5. Dystrophic calcification seen in the right caudate and left cingulate gyrus remain unchanged 6. No new lesion or hemorrhagic changes C7 right cerebral hemisphere appears smaller than the left.. CRANIOCERVICAL JUNCTION: No significant abnormality. ORBITS: No significant abnormality of visualized orbits. SINUSES / MASTOIDS: No significant abnormality of the visualized paranasal sinuses or mastoid air alex ls. ADDITIONAL FINDINGS: None. IMPRESSION: No new lesion; no hemorrhagic changes Signer Name: Marbella Cortes MD Signed: 04/21/2020 4:16 PM Workstation Name: [id number]
[2020-04-21] MEDS: FAMOTIDINE 20 MG TAB PO SCH (21:52)
[2020-04-21] MEDS: SODIUM CHLORIDE 0.9% 1000 ML 1,000 ML IV SCH (21:52)
[2020-04-22 06:20] LABS: BUN/Creatinine Ratio 22; Blood Urea Nitrogen 24 mg/dL (9-20); Calcium 8.4 mg/dL (8.4-10.2); Hemolysis Index 11
[2020-04-22] MEDS ORDERED: POTASSIUM CHLORIDE ER 20 MEQ TAB PO ONE (09:00)
[2020-04-22] MEDS ORDERED: amLODIPine 10 MG TAB PO SCH (10:00)
[2020-04-22] MEDS ORDERED: carvediloL 3.125 MG TAB PO SCH (10:00)
[2020-04-22] MEDS: ASPIRIN 325 MG TAB PO SCH (10:15)
[2020-04-22] MEDS: FAMOTIDINE 20 MG TAB PO SCH (10:15)
[2020-04-22] MEDS: SODIUM CHLORIDE 0.9% 1000 ML 1,000 ML IV SCH (10:18)
--- NOTE | 2020-04-22 11:32 | Progress Note ---
Subjective Date of service: 04/22/20 Interval history: I reviewed over the CT of the brain from yesterday and the ischemic stroke of the cerebellum has very mild brain edema no bleed this is thre left cerebellum.... the territory of the right Middle cerebral artery shows much larger and old / chronic infarct and in the posterior aspect acute stroe ( seen on the MRI) since there are two territories of circulation suspect possible embolic disorder Objective - Vital Sign Vital Signs - 12hr 04/21/20 04/22/20 04/22/20 23:36 04:26 06:00 Temperature 98.7 F 98.4 F Pulse Rate 77 72 78 Respiratory 18 18 Rate Blood Pressure 170/96 145/113 O2 Sat by Pulse 96 98 Oximetry 04/22/20 07:15 Temperature 98.2 F Pulse Rate Respiratory 18 Rate Blood Pressure 148/84 O2 Sat by Pulse Oximetry - Laboratory Findings CBC and BMP: 04/20/20 08:50 04/22/20 04:34 Abnormal Lab Findings: Abnormal Labs 04/20/20 04/20/20 04/21/20 08:50 08:56 03:42 RBC 5.32 H Hgb 16.6 H Hct 49.1 H [place] % (Auto) 9.6 H Sodium 134 L 133 L Potassium Chloride 92.7 L 94.7 L Carbon Dioxide 18 L D BUN 36 H 32 H Creatinine 1.7 H 1.6 H Glucose 156 H POC Glucose Magnesium 2.50 H Lactate Dehydrogenase 229 H Total Creatine Kinase 573 H CK-MB (CK-2) 4.4 H 04/21/20 04/21/20 04/21/20 06:09 11:55 23:48 RBC Hgb Hct [place] % (Auto) Sodium Potassium Chloride Carbon Dioxide BUN Creatinine Glucose POC Glucose 108 H 128 H 178 H Magnesium Lactate Dehydrogenase Total Creatine Kinase CK-MB (CK-2) 04/22/20 04:34 RBC Hgb Hct [place] % (Auto) Sodium Potassium 3.2 L D Chloride Carbon Dioxide BUN 24 H Creatinine Glucose POC Glucose Magnesium Lactate Dehydrogenase Total Creatine Kinase CK-MB (CK-2)
--- NOTE | 2020-04-22 12:37 | Progress Note ---
Subjective Date of service: 04/22/20 Interval history: spoke to Dr. Mendoza and likely cause of stroke was HTN I do not see that anticoagulants are safe precious since strokes are from HTN by clear history..... also risk of bleed into large cerebellar stroke is potentially high risk. went over formal report of ECHO HTN is the problem Objective - Vital Sign Vital Signs - 12hr 04/22/20 04/22/20 04/22/20 04:26 06:00 07:15 Temperature 98.4 F 98.2 F Pulse Rate 72 78 Respiratory 18 18 Rate Blood Pressure 145/113 148/84 O2 Sat by Pulse 98 Oximetry - Laboratory Findings CBC and BMP: 04/20/20 08:50 04/22/20 04:34 Abnormal Lab Findings: Abnormal Labs 04/20/20 04/20/20 04/21/20 08:50 08:56 03:42 RBC 5.32 H Hgb 16.6 H Hct 49.1 H [place] % (Auto) 9.6 H Sodium 134 L 133 L Potassium Chloride 92.7 L 94.7 L Carbon Dioxide 18 L D BUN 36 H 32 H Creatinine 1.7 H 1.6 H Glucose 156 H POC Glucose Magnesium 2.50 H Lactate Dehydrogenase 229 H Total Creatine Kinase 573 H CK-MB (CK-2) 4.4 H 04/21/20 04/21/20 04/21/20 06:09 11:55 23:48 RBC Hgb Hct [place] % (Auto) Sodium Potassium Chloride Carbon Dioxide BUN Creatinine Glucose POC Glucose 108 H 128 H 178 H Magnesium Lactate Dehydrogenase Total Creatine Kinase CK-MB (CK-2) 04/22/20 04:34 RBC Hgb Hct [place] % (Auto) Sodium Potassium 3.2 L D Chloride Carbon Dioxide BUN 24 H Creatinine Glucose POC Glucose Magnesium Lactate Dehydrogenase Total Creatine Kinase CK-MB (CK-2)
--- NOTE | 2020-04-22 12:41 | Discharge Summary ---
Providers - Providers Date of Admission: 04/21/20 08:00 Date of discharge: 04/22/20 Attending physician: WINIFRED YEUNG 04/20/20 13:25 Consult to Case Management [CONS] Routine Services Needed at Discharge: Other Notified:: case management Consult to Dietitian/Nutrition [CONS] Routine Physician Instructions: Reason For Exam: Reason for Consult: Nutrition Recommendations Reason for Consult: Diet education Occupational Therapy Evaluate and Treat [CONS] Routine Comment: Reason For Exam: Neuro deficits Physical Therapy Evaluation and Treat [CONS] Routine Comment: Reason For Exam: Neuro deficits 04/21/20 08:05 Consult to Physician [CONS] Routine Comment: Consulting Provider: ERNESTINA WELCH Physician Instructions: Reason For Exam: cva [facility] Condition[facility] Hospital course: This is a 65-year-old -[place] male with history of hypertension who recently discharged now presented to emergency department by EMS for unresponsive episode. Per EMS the patient was found unresponsive by his and chest compressions were started for approximately 10 minutes. Upon EMS arrival the patient was sluggish but awake and alert. CT scan of the head in the ER showed left cerebral infarct, which is a new finding compared to his prior CT scan which is obtained on April 16, 2020. Telemetry neurology consulted from the ER and patient was admitted for further evaluation and management. Radiological data: CT brain 04/20: 1. New ischemic changes involving the left cerebellar hemisphere. 2. Progressive hypodensity in the right posterior parietal/occipital region consistent with maturation of prior infarct. 3. Chronic right temporoparietal encephalomalacia. MRI brain 04/20; 1. Multiple subacute infarctions in a variety of vascular distributions suggesting possible embolic etiology. 2. Encephalomalacia in the right frontal operculum secondary to remote right MCA infarction. 2. Large left cerebellar infarction. Close clinical and imaging follow-up is suggested. Mass effect may increase and hydrocephalus is a potential complication of this large cerebellar infarction. There is no indication of hydrocephalus at this time. CT brain 04/21; 1. Left cerebellar hemisphere infarction involving superior cerebellar artery territory and posterior inferior cerebellar artery territory has not progressed. Mass effect over the fourth ventricle has not increased. No hemorrhagic changes are seen. 2. Subacute infarction in the right posterior parietal border zone has not expanded. 3. As seen in the last CT scan, focal areas of encephalomalacia are seen in the right frontal operculum extending into insular cortex and putamen and right caudate. 4. Subtle chronic white matter ischemic areas 5. Dystrophic calcification seen in the right caudate and left cingulate gyrus remain unchanged 6. No new lesion or hemorrhagic changes 2d echo: EF 45-50% carotid doppler: 1. Less than 50% stenosis of the common and internal carotid arteries. Discharge diagnosis and Mx: Acute encephalopathy/syncope Acute left cerebellar CVA - Placed on aspirin and statin, consulted neurology - CT scan of the head obtained in the ER and shows New ischemic changes involv ing the left cerebellar hemisphere - MRI of the head showed Large left cerebellar infarction, carotid Doppler w/o any sig stenosis, 2-D echocardiogram showed Ef 45-50% - Repeat CT head showed no hemorrhagic changes or progression of stroke - PT/OT recommended HH on discharge - Patient was then discharged home in stable condition QUINCY, likely due to vasomotor nephropathy -improved with IV fluid, History of prior CVA -need HH on discharge Hypertension, BP appears to be stable, adjusted home medications Disposition: [id number] HOME UNDER HOME [facility] Time spent for discharge: 34 minutes Core Measure Documentation - Palliative Care Palliative Care/ Comfort Measures: Not Applicable - Core Measures Any of the following diagnoses?: stroke - Stroke Discharge Requirements Statin for LDL = or >70 mg/dl on DC: Yes Anticoag for atrial fib/atrial flutter: Not Applicable Antithrombotic for ischemic stroke: Yes Exam - Physical Exam Narrative exam: GENERAL: well-developed and well-nourished -[place] male lying on bed appeared to be in no discomfort. HEENT: Normocephalic. Atraumatic. No conjunctival congestion or icterus. Patient has moist mucous membranes. NECK: Supple. Trachea midline. CHEST/LUNGS: Clear to auscultated bilaterally, breathing nonlabored. No wheezes crackles or rhonchi. HEART/CARDIOVASCULAR: Regular in rate and rhythm. S1 and S2 positive. ABDOMEN: Abdomen is soft, nontender. Patient has normal bowel sounds. SKIN: There is no rash. Warm and dry. NEURO: left sided weakness. reduced vision, Follows command. MUSCULOSKELETAL: No joint effusion or tenderness. EXTRIMITY: No edema, no cyanosis or clubbing. PSYCH: Cooperative. - Constitutional Vitals: Temp Pulse Resp BP Pulse Ox 98.2 F 68 18 148/84 98 04/22/20 07:15 04/22/20 10:00 04/22/20 07:15 04/22/20 07:15 04/22/20 04:26 Plan Activity: advance as tolerated, fall precautions Weight Bearing Status: Weight Bear as Tolerated Diet: low fat, low salt Special Instructions: record daily BP diary Follow up with: ERNESTINA WELCH MD [Staff Physician] - 7 Days [facility]LLO [Primary Care Provider] - 3-5 Days KAMRYN RAMOS MD [Staff Physician] - 7 Days Prescriptions: AtorvaSTATin [Lipitor] 40 mg PO QHS #30 tab Aspirin EC [Halfprin EC] 81 mg PO QDAY #30 tablet.
[2020-04-22 15:18] VITALS: BP 174/114
== END 2020-04-22 15:20 | disposition home health service (06) | DRG 64 ==
LOC: ED 08:02 → 4A 11:15 → INTOOBSV 11:15 → 4A 13:18 → OBSVTOIN 04-21 08:00
PROVIDERS: ADMIT Hospitalist; ATTEND Internal Medicine
DX: I63.9 Cerebral infarction, unspecified (principal); N17.0 Acute kidney failure with tubular necrosis; G93.40 Encephalopathy, unspecified; E87.6 Hypokalemia; I10 Essential (primary) hypertension; R29.702 NIHSS score 2; Z79.899 Other long term (current) drug therapy
CPT/HCPCS: 36415; 70450; 70551; 71045; 71046; 71260; 74177; 80048; 80053; 80061; 80076; 80307; 81001; 82550; 82553; 82962; 83036; 83615; 83735; 84484; 85025; 85610; 87641; 93005; 93306; 93880; 96365; 96366; 96372; 96374; 96375; 96376; 99291; G0378; A9270-GY; C9113; J0360; J1200; J1644; J2405; J2765; J7030; J7050; Q9967